=== PATIENT | male | born 1965 | race Caucasian/White ===

== ENCOUNTER 2019-08-30 11:06 | Inpatient (IN) ==
[~2019-08-30 11:06] MED LIST: LASIX IVP SCH
[2019-08-30] MEDS ORDERED: ROCEPHIN VIAL 1 GRAM 1 G in NS 100 ML IV + SPIKE MINIBAG* 100 ML IV SCH (13:45)
[2019-08-30] MEDS ORDERED: NS 1000 ML 1,000 ML IV SCH (14:00)
[2019-08-30] MEDS ORDERED: LASIX IVP SCH ×2 (14:00)
[2019-08-30] MEDS ORDERED: ASPIRIN EC 81 MG PO SCH (14:00)
[2019-08-30] MEDS ORDERED: DUONEB 0.5 MG/3 MG (3 mL) NEB ONE (14:13)
[2019-08-30 14:14] LABS: BASOPHILS # (AUTO) 0.1 X10^3/uL (0.0-0.1); BASOPHILS % (AUTO) 0.7 % (0.2-1.0); EOSINOPHILS % (AUTO) 0.4 % (0.9-2.9); HEMATOCRIT 50.9 % (42.0-54.0); HEMOGLOBIN 17.2 g/dL (13.5-18.0); LYMPHOCYTES # (AUTO) 1.6 X10^3/uL (1.3-2.9); LYMPHOCYTES % (AUTO) 16.2 % (21.0-51.0); MEAN CORPUSCULAR HEMOGLOBIN 31.9 pg (27.0-34.0); MEAN CORPUSCULAR HGB CONC 33.8 g/dL (33.0-35.0); MEAN CORPUSCULAR VOLUME 94.4 fL (80.0-100.0); MEAN PLATELET VOLUME 8.5 fL (7.4-11.0); MONOCYTES # (AUTO) 0.8 x10^3/uL (0.3-0.8); MONOCYTES % (AUTO) 8.4 % (0.0-13.0); NEUTROPHILS # (AUTO) 7.5 x10^3/uL (2.2-4.8); NEUTROPHILS % (AUTO) 74.3 % (42.0-75.0); PLATELET COUNT 269 X10^3/uL (150.0-450.0); RED BLOOD COUNT 5.39 X10^6/uL (4.7-6.0); RED CELL DISTRIBUTION WIDTH 14.7 % (11.6-16.5); WHITE BLOOD COUNT 10.1 X10^3/uL (3.6-10.0)
--- NOTE | 2019-08-30 14:24 | RAD ---
HISTORYSOB, SWELLINGSTUDYCHEST, 1 VIEWCOMPARISONNoneFINDINGSThe patient is slightly rotated. The cardiac silhouette is enlarged with pulmonary vascular congestion and bibasilar edema and/or infiltrate. Recommend clinical correlation and continued follow up as indicated for further evaluation.IMPRESSIONCardiomegaly with pulmonary vascular congestion and bibasilar edema and/or infiltrate. Correlate clinically.Electronically signed by: DOROTHY FRANCISCO (Aug 30, 2019 14:22:42)
[2019-08-30 14:28] LABS: ALANINE AMINOTRANSFERASE 25 Units/L (12-78); ALBUMIN 2.8 g/dL (3.4-5.0); ALKALINE PHOSPHATASE 82 Units/L (46-116); ASPARTATE AMINO TRANSFERASE 20 Units/L (15-37); BLOOD UREA NITROGEN 23 mg/dL (7-18); CALCIUM 8.7 mg/dL (8.5-10.1); CARBON DIOXIDE 26.5 mmol/L (21-32); CHLORIDE 102 mmol/L (98-107); COR CA(FOR HYPOALB) 9.7 mg/dL (8.5-10.1); COR NA(FOR HYPERGLY) 142 mmol/L (136-145); CREATININE 1.04 mg/dL (0.70-1.30); SODIUM 137 mmol/L (136-145); TOTAL PROTEIN 6.2 g/dL (6.4-8.2); eGFR NON BLACK RACES > 60 (>60)
[2019-08-30] MEDS: ROCEPHIN VIAL 1 GRAM 1 G in NS 100 ML IV + SPIKE MINIBAG* 100 ML IV SCH (14:40)
[2019-08-30] MEDS: NS 1000 ML 1,000 ML IV SCH (14:40)
[2019-08-30] MEDS: ZESTRIL TAB 40 MG PO SCH (14:52)
[2019-08-30 14:53] LABS: CKMB % 2.1 % (<4); TROPONIN I 0.04 ng/mL (0-1.5)
[2019-08-30 14:56] LABS: CREATINE KINASE MB 4.6 ng/mL (0-4.0)
[2019-08-30 15:48] VITALS: BMI 38.9
[2019-08-30] MEDS ORDERED: LASIX IVP ONE (15:54)
[2019-08-30] MEDS ORDERED: LOVENOX INJ 100 MG SYR SC SCH ×2 (16:00→21:00)
[2019-08-30] MEDS ORDERED: LOVENOX INJ 30 MG SYR SC SCH (16:00)
[2019-08-30] MEDS ORDERED: LOVENOX INJ 30 MG SYR SC ONE (16:02)
[2019-08-30] MEDS ORDERED: LOVENOX INJ 100 MG SYR SC ONE (16:03)
[2019-08-30] MEDS ORDERED: LASIX ONE (16:04)
[2019-08-30] MEDS ORDERED: MORPHINE SULFATE INJ 2 MG INJ ONE (16:04)
[2019-08-30] MEDS: MORPHINE SULFATE INJ 2 MG INJ IVP PRN (16:21)
[2019-08-30] MEDS: HumuLIN R SUBCUT PRN ×2 (16:34→20:25)
[2019-08-30] MEDS: XOPENEX 1.25 MG/3 ML NEBULE NEB SCH (17:23)
[2019-08-30 18:20] LABS: CKMB % 2.2 % (<4); TROPONIN I 0.04 ng/mL (0-1.5)
[2019-08-30 18:22] LABS: CREATINE KINASE MB 4.9 ng/mL (0-4.0)
[2019-08-30] MEDS: LIPITOR TAB 40 MG PO SCH (20:25)
[2019-08-30 22:23] LABS: CKMB % 2.1 % (<4); TROPONIN I 0.04 ng/mL (0-1.5)
[2019-08-30 22:42] LABS: CREATINE KINASE MB 4.1 ng/mL (0-4.0)
[2019-08-31] MEDS: XOPENEX 1.25 MG/3 ML NEBULE NEB SCH ×4 (00:20→17:04)
[2019-08-31] MEDS: MORPHINE SULFATE INJ 2 MG INJ IVP PRN (01:49)
[2019-08-31] MEDS: LASIX IVP SCH ×3 (03:32→20:01)
[2019-08-31] MEDS ORDERED: LOVENOX INJ 30 MG SYR SC SCH (04:00)
[2019-08-31 06:06] LABS: BASOPHILS # (AUTO) 0.1 X10^3/uL (0.0-0.1); BASOPHILS % (AUTO) 0.6 % (0.2-1.0); EOSINOPHILS # (AUTO) 0.1 x10^3/uL (0.0-0.2); EOSINOPHILS % (AUTO) 1.1 % (0.9-2.9); HEMOGLOBIN 16.6 g/dL (13.5-18.0); LYMPHOCYTES # (AUTO) 1.8 X10^3/uL (1.3-2.9); LYMPHOCYTES % (AUTO) 21.9 % (21.0-51.0); MEAN CORPUSCULAR HEMOGLOBIN 31.9 pg (27.0-34.0); MEAN CORPUSCULAR HGB CONC 33.9 g/dL (33.0-35.0); MEAN CORPUSCULAR VOLUME 94.3 fL (80.0-100.0); MEAN PLATELET VOLUME 8.7 fL (7.4-11.0); MONOCYTES # (AUTO) 0.8 x10^3/uL (0.3-0.8); MONOCYTES % (AUTO) 9.8 % (0.0-13.0); NEUTROPHILS # (AUTO) 5.5 x10^3/uL (2.2-4.8); NEUTROPHILS % (AUTO) 66.6 % (42.0-75.0); PLATELET COUNT 249 X10^3/uL (150.0-450.0); RED CELL DISTRIBUTION WIDTH 14.8 % (11.6-16.5); WHITE BLOOD COUNT 8.2 X10^3/uL (3.6-10.0)
[2019-08-31 06:16] LABS: HEMOGLOBIN A1C 10.1 %
[2019-08-31 06:23] LABS: ALANINE AMINOTRANSFERASE 23 Units/L (12-78); ALBUMIN 2.4 g/dL (3.4-5.0); ALKALINE PHOSPHATASE 72 Units/L (46-116); ASPARTATE AMINO TRANSFERASE 19 Units/L (15-37); BLOOD UREA NITROGEN 25 mg/dL (7-18); CALCIUM 8.2 mg/dL (8.5-10.1); CARBON DIOXIDE 30.9 mmol/L (21-32); CHLORIDE 103 mmol/L (98-107); COR CA(FOR HYPOALB) 9.5 mg/dL (8.5-10.1); COR NA(FOR HYPERGLY) 141 mmol/L (136-145); CREATININE 1.02 mg/dL (0.70-1.30); SODIUM 140 mmol/L (136-145); TOTAL PROTEIN 6.3 g/dL (6.4-8.2); eGFR NON BLACK RACES > 60 (>60)
[2019-08-31] MEDS ORDERED: POTASSIUM CHL 60 MEQ/NS 0.45% 500 ML IV PRN (08:04)
[2019-08-31] MEDS ORDERED: POTASSIUM CHLORIDE LIQ 20 MEQ UDC PO PRN (08:04)
[2019-08-31] MEDS ORDERED: MICRO K EXTEN CAP 10 MEQ PO PRN (08:04)
[2019-08-31] MEDS ORDERED: K-RIDER 10 MEQ/NS 100 ML 10 MEQ/100 ML BAG IV PRN (08:04)
[2019-08-31] MEDS ORDERED: KLOR-CON PO PRN (08:04)
[2019-08-31] MEDS ORDERED: POTASSIUM CHL 40 MEQ/NS 0.45% 500 ML IV PRN (08:04)
[2019-08-31] MEDS ORDERED: ASPIRIN EC 81 MG PO SCH (09:00)
[2019-08-31] MEDS: ZESTRIL TAB 40 MG PO SCH (09:00)
[2019-08-31] MEDS ORDERED: ZESTRIL TAB 40 MG PO SCH (09:00)
[2019-08-31] MEDS: ROCEPHIN VIAL 1 GRAM 1 G in NS 100 ML IV + SPIKE MINIBAG* 100 ML IV SCH (09:03)
[2019-08-31] MEDS: LOVENOX INJ 30 MG SYR SC SCH ×2 (09:04→20:01)
[2019-08-31] MEDS: LOVENOX INJ 100 MG SYR SC SCH ×2 (09:06→20:01)
[2019-08-31] MEDS: NS 1000 ML 1,000 ML IV SCH ×2 (10:38→21:25)
[2019-08-31] MEDS: NORVASC TAB 10 MG PO SCH (11:09)
[2019-08-31] MEDS: MAGNESIUM SULFATE 1 GRAM/100 mL PREMIX 1 GM/100 ML BAG IV PRN ×2 (11:10→13:06)
[2019-08-31] MEDS: K-DUR TAB 20 MEQ PO PRN (11:10)
[2019-08-31] MEDS: HumuLIN R SUBCUT PRN ×2 (11:42→17:09)
[2019-08-31] MEDS: ALDACTONE TAB 25 MG PO SCH (11:42)
--- NOTE | 2019-08-31 14:38 | RAD ---
HISTORYCHFSTUDYAP [id number]/27/2019FINDINGSStable cardiomegaly with bilateral pulmonary infiltrates and vascular congestion. There is no new abnormality or interval change since 1 day prior.IMPRESSIONContinued cardiomegaly with described pulmonary densities consistent with perivascular edema. An associated inflammatory process is not excluded.Electronically signed by: ALE ASHRAF (Aug 31, 2019 14:36:28)
[2019-08-31] MEDS: LIPITOR TAB 40 MG PO SCH (20:04)
[2019-08-31] MEDS: LEVEMIR SC SCH (20:05)
[2019-08-31] MEDS: SNACK - Diabetic Appropriate PO SCH (20:05)
[2019-08-31] MEDS ORDERED: LIPITOR TAB 40 MG PO SCH (21:00)
[2019-09-01] MEDS: XOPENEX 1.25 MG/3 ML NEBULE NEB SCH ×4 (00:10→17:01)
[2019-09-01] MEDS: NS 1000 ML 1,000 ML IV SCH (05:35)
[2019-09-01 06:11] LABS: BASOPHILS % (AUTO) 0.6 % (0.2-1.0); EOSINOPHILS # (AUTO) 0.1 x10^3/uL (0.0-0.2); EOSINOPHILS % (AUTO) 1.2 % (0.9-2.9); HEMATOCRIT 49.8 % (42.0-54.0); HEMOGLOBIN 16.7 g/dL (13.5-18.0); LYMPHOCYTES % (AUTO) 28.5 % (21.0-51.0); MEAN CORPUSCULAR HEMOGLOBIN 31.8 pg (27.0-34.0); MEAN CORPUSCULAR HGB CONC 33.5 g/dL (33.0-35.0); MEAN CORPUSCULAR VOLUME 94.8 fL (80.0-100.0); MEAN PLATELET VOLUME 8.5 fL (7.4-11.0); MONOCYTES # (AUTO) 0.7 x10^3/uL (0.3-0.8); MONOCYTES % (AUTO) 9.5 % (0.0-13.0); NEUTROPHILS # (AUTO) 4.3 x10^3/uL (2.2-4.8); NEUTROPHILS % (AUTO) 60.2 % (42.0-75.0); PLATELET COUNT 279 X10^3/uL (150.0-450.0); RED BLOOD COUNT 5.25 X10^6/uL (4.7-6.0); RED CELL DISTRIBUTION WIDTH 14.9 % (11.6-16.5); WHITE BLOOD COUNT 7.1 X10^3/uL (3.6-10.0)
[2019-09-01 06:25] LABS: ALANINE AMINOTRANSFERASE 22 Units/L (12-78); ALBUMIN 2.6 g/dL (3.4-5.0); ALKALINE PHOSPHATASE 77 Units/L (46-116); ASPARTATE AMINO TRANSFERASE 22 Units/L (15-37); BLOOD UREA NITROGEN 21 mg/dL (7-18); CALCIUM 8.4 mg/dL (8.5-10.1); CHLORIDE 102 mmol/L (98-107); COR CA(FOR HYPOALB) 9.5 mg/dL (8.5-10.1); COR NA(FOR HYPERGLY) 140 mmol/L (136-145); MAGNESIUM 1.8 mg/dL (1.7-2.9); SODIUM 139 mmol/L (136-145); TOTAL PROTEIN 6.9 g/dL (6.4-8.2); eGFR NON BLACK RACES > 60 (>60)
[2019-09-01] MEDS: MAGNESIUM SULFATE 1 GRAM/100 mL PREMIX 1 GM/100 ML BAG IV PRN ×2 (06:32→09:00)
[2019-09-01] MEDS: K-DUR TAB 20 MEQ PO PRN (06:32)
--- NOTE | 2019-09-01 07:25 | RAD ---
HISTORYchf, sobSTUDYCHEST, 1 [id number]/28/2019 at 4:33 a.m.FINDINGSThe heart is mildly enlarged but unchanged. The pulmonary vessels are engorged ill-defined centrally and may be slightly less prominent. There is hazy airspace opacity along the perihilar regions which is more prominent on the right and may be less prominent. There is a small right pleural effusion which is more prominent.IMPRESSIONStable cardiomegaly and mild pulmonary edema which may be slightly less prominentHazy airspace opacities scattered in both lungs which is more prominent on the right may represent atypical edema and/or pneumonia which may be slightly less prominent.Small right pleural effusion which is more apparentElectronically signed by: CHRYSTAL PRADHAN (Sep 01, 2019 07:24:08)
[2019-09-01] MEDS: LASIX IVP SCH ×5 (08:57→21:04)
[2019-09-01] MEDS: ALDACTONE TAB 25 MG PO SCH (08:58)
[2019-09-01] MEDS: ZESTRIL TAB 40 MG PO SCH (08:58)
[2019-09-01] MEDS: NORVASC TAB 10 MG PO SCH (08:58)
[2019-09-01] MEDS: LOVENOX INJ 30 MG SYR SC SCH ×2 (08:59→20:31)
[2019-09-01] MEDS: LOVENOX INJ 100 MG SYR SC SCH ×2 (08:59→20:39)
[2019-09-01] MEDS: ROCEPHIN VIAL 1 GRAM 1 G in NS 100 ML IV + SPIKE MINIBAG* 100 ML IV SCH (09:01)
[2019-09-01] MEDS: LEVEMIR SC SCH ×2 (09:05→20:38)
--- NOTE | 2019-09-01 09:19 | CT ---
HISTORYSOBSTUDYSINUS W/O CONCOMPARISONNoneTECHNIQUEMultiple axial images of the paranasal sinuses were obtained without the administration of IV contrast. Coronal and sagittal reformats were performed and reviewed. Dose reduction techniques including Automated Exposure Control (AEC) and adjustment of mA and kV were utilized.FINDINGSThe visualized intracranial orbital contents are unremarkable. There is mild mucosal thickening along the base of the frontal sinuses extending throughout the ethmoid air cells and right maxillary sinus. There is diffuse opacification of the left maxillary antrum with mucosal thickening extending into the left infundibulum which is mildly dilated and occluded with bony thinning throughout the area. No air-fluid levels are seen. No fracture is seen. The orbits are unremarkable. The nasal septum is mildly deviated to the right.IMPRESSIONMild chronic pansinusitis.Severe chronic left maxillary sinus disease and mucosal thickening seen extending into the left infundibulum which is mildly dilated and occluded throughout. Suggest ENT follow-up.Mild nasal septal deviation to the right with no acute bony abnormality.Electronically signed by: CHRYSTAL PRADHAN (Sep 01, 2019 09:18:18)
[2019-09-01] MEDS ORDERED: LASIX IVP ONE (13:27)
[2019-09-01] MEDS ORDERED: LASIX ONE (13:27)
[2019-09-01] MEDS ORDERED: LASIX IVP SCH (14:00)
[2019-09-01] MEDS: HumuLIN R SUBCUT PRN (16:55)
[2019-09-01] MEDS: LIPITOR TAB 40 MG PO SCH (20:29)
[2019-09-01] MEDS: SNACK - Diabetic Appropriate PO SCH (20:39)
[2019-09-02] MEDS: XOPENEX 1.25 MG/3 ML NEBULE NEB SCH ×4 (00:58→17:07)
[2019-09-02] MEDS: NS 1000 ML 1,000 ML IV SCH ×2 (04:27→23:14)
[2019-09-02] MEDS: LASIX IVP SCH ×3 (05:06→21:31)
--- NOTE | 2019-09-02 06:13 | PCM.PROG ---
Progress Note - Progress Note for Day of Date of Exam: 08/31/19 - Subjective Subjective: WAS ADMITTED FOR NEW ONSET CHF, SOB, AND BILATERAL LOWER EXTREMITY PITTING EDEMA. TODAY, HE IS ALERT AND ORIENTED, LYING IN BED ON MORNING ROUNDS. HE CONTINUES WITH COUGH, SHORTNESS OF BREATH, WEAKNESS, AND EDEMA THIS MORNING. HE ALSO REPORTS SINUS CONGESTION AND HEADACHE. ON EXAM INATION, HEART IS REGULAR IN RATE AND RHYTHM. BILATERAL LUNGS ARE NOTED WITH CRACKLES THROUGHOUT. ABDOMEN IS ROUND, SOFT, AND NON-TENDER WITH NORMAL BOWEL SOUNDS NOTED IN ALL QUADRANTS. LOWER EXTREMITIES ARE NOTED WITH 3+ PITTING EDEMA. HIS VITALS THIS MORNING ARE: 97.4-98-28-99%BIPAP-147/92. LABS WERE OBTAINED. ABNORMAL LAB VALUES INCLUDE THE FOLLOWING: BUN 25, GLUCOSE 139, CALCIUM 8.2, MAGNESIUM 1.5, TOTAL BILI 1.10, BNP 842, TOTAL PROTEIN 6.3, ALBUMIN 2.4. SPUTUM CULTURE IS PENDING. A CHEST XRAY WAS OBTAINED AND REVEALED: Continued cardiomegaly with described pulmonary densities consistent with perivascular edema. An associated inflammatory process is not excluded. AN ECHO WAS OBTAINED ON ADMISSION AND LEFT ATRIAL ENLARGEMENT WITH AN ABNORMAL EJECTION FRACTION OF 21% AND MODERATE PULMONARY HPERTENSION. HE IS CURRENTLY RECEIVING NS AT 50 ML/HR, THE POTASSIUM AND MAGNESIUM PROTOCOLS, MORPHINE 2MG IV Q4H PRN, LISINOPRIL 40MG PO DAILY, HUMULIN R SLDING SCALE, LASIX 40MG IV Q 12H, AND RO CEPHIN 1G IV DAILY. WE WILL CONTINUE WITH CURRENT PLAN OF CARE TODAY AND OBTAIN A SINUS CT. OTHERWISE, WE WILL FOLLOW UP WITH AM LABS AND CHEST XRAY CONTINUE TO MONITOR. - Past Medical Family Social History Past Med/Fam/Surg Hx: No changes since H&P Allergies: Allergies No Known Drug Allergies Allergy (Verified 08/30/19 14:03) - Review of Systems ROS: No change since H&P - Vital Signs and I&O's Vital Signs: Temperature 97.5 F Pulse Rate [Left Radial] 99 Pulse Rate 106 Respiratory Rate 20 Blood Pressure [Left Arm] 127/90 O2 Sat by Pulse Oximetry 98 Intake and Output: Intake & Output 08/30/19 08/31/19 09/01/19 09/02/19 11:59 11:59 11:59 11:59 Intake Total 880 / 880 1830 / 1830 2250 / 2250 Output Total 1450 / 1450 3650 / 3650 3975 / 3975 Balance -570 / -570 -1820 / -1820 -1725 / -1725 - Physical Exam Oriented: Normal Eyes: Normal Ear: Normal Nose: Normal Throat: Normal Respiratory: OTHER (crackles ) Cardiovascular: Edema (3+ BLE PITTING EDEMA ) : Normal Auscultation: Bowel Sounds: Normal Palpation: Normal Tenderness: Normal Skin: Normal Musculoskeletal: Normal Psychiatric: Normal Mood Description: Calm Affect: Normal Speech Pattern: Clear, Appropriate - Laboratory and Diagnostics Result Diagrams: 09/02/19 05:37 09/02/19 05:37 Labs: 08/30/19 17:25 Sputum - Expectorated Sputum Sputum Culture - Preliminary 08/30/19 17:25 Sputum - Expectorated Sputum - Final Laboratory WBC 7.1 X10^3/uL (3.6-10.0) 09/01/19 05:35 RBC 5.25 X10^6/uL (4.7-6.0) 09/01/19 05:35 Hgb 16.7 g/dL (13.5-18.0) 09/01/19 05:35 Hct 49.8 % (42.0-54.0) 09/01/19 05:35 MCV 94.8 fL (80.0-100.0) 09/01/19 05:35 MCH 31.8 pg (27.0-34.0) 09/01/19 05:35 MCHC 33.5 g/dL (33.0-35.0) 09/01/19 05:35 RDW 14.9 % (11.6-16.5) 09/01/19 05:35 Plt Count 279 X10^3/uL (150.0-450.0) 09/01/19 05:35 MPV 8.5 fL (7.4-11.0) 09/01/19 05:35 Neut % (Auto) 60.2 % (42.0-75.0) 09/01/19 05:35 Lymph % (Auto) 28.5 % (21.0-51.0) 09/01/19 05:35 [place] % (Auto) 9.5 % (0.0-13.0) 09/01/19 05:35 Eos % (Auto) 1.2 % (0.9-2.9) 09/01/19 05:35 Baso % (Auto) 0.6 % (0.2-1.0) 09/01/19 05:35 Neut # (Auto) 4.3 x10^3/uL (2.2-4.8) 09/01/19 05:35 Lymph # (Auto) 2.0 X10^3/uL (1.3-2.9) 09/01/19 05:35 [place] # (Auto) 0.7 x10^3/uL (0.3-0.8) 09/01/19 05:35 Eos # (Auto) 0.1 x10^3/uL (0.0-0.2) 09/01/19 05:35 Baso # (Auto) 0.0 X10^3/uL (0.0-0.1) 09/01/19 05:35 Absolute Nucleated RBC 0.0 /100WBC 09/01/19 05:35 PT 15.1 SECONDS (11.8-14.3) 08/30/19 13:59 INR Target Range - 08/30/19 13:59 INR 1.24 (0.8-1.3) 08/30/19 13:59 Sodium 139 mmol/L (136-145) 09/01/19 05:35 Corrected Sodium 140 mmol/L (136-145) 09/01/19 05:35 Potassium 3.5 mmol/L (3.5-5.1) 09/01/19 05:35 Chloride 102 mmol/L (98-107) 09/01/19 05:35 Carbon Dioxide 31.0 mmol/L (21-32) 09/01/19 05:35 BUN 21 mg/dL (7-18) H 09/01/19 05:35 Creatinine 1.10 mg/dL (0.70-1.30) 09/01/19 05:35 Est GFR (MDRD) Af Amer > 60 (>60) 09/01/19 05:35 Est GFR (MDRD) Non-Af > 60 (>60) 09/01/19 05:35 Glucose 124 mg/dL (65-99) H 09/01/19 05:35 POC Glucose (mg/dL) 148 mg/dL (65-99) H 09/02/19 05:31 Hemoglobin A1c 10.1 % 08/31/19 05:30 Calcium 8.4 mg/dL (8.5-10.1) L 09/01/19 05:35 Corrected Calcium 9.5 mg/dL (8.5-10.1) 09/01/19 05:35 Magnesium 1.8 mg/dL (1.7-2.9) 09/01/19 05:35 Total Bilirubin 1.00 mg/dL (0.2-1.0) 09/01/19 05:35 AST 22 Units/L (15-37) 09/01/19 05:35 ALT 22 Units/L (12-78) 09/01/19 05:35 Alkaline Phosphatase 77 Units/L (46-116) 09/01/19 05:35 Creatine Kinase 197 Units/L (39-308) 08/30/19 21:38 CK-MB (CK-2) 4.1 ng/mL (0-4.0) H 08/30/19 21:38 CK/CKMB % Calc 2.1 % (<4) 08/30/19 21:38 Troponin I 0.04 ng/mL (0-1.5) 08/30/19 21:38 B-Natriuretic Peptide 800 pg/mL (0-79) H* 09/01/19 05:35 Total Protein 6.9 g/dL (6.4-8.2) 09/01/19 05:35 Albumin 2.6 g/dL (3.4-5.0) L 09/01/19 05:35 Globulin 4.3 g/dL (2.5-4.5) 09/01/19 05:35 Albumin/Globulin Ratio 0.6 Ratio (1.1-2.1) L 09/01/19 05:35 - Plan (1) New onset of congestive heart failure Status: Acute Plan: IV LASIX, LISINOPRIL, SPIRONOLACTONE 25MG PO DAILY, CONTINUE HOME MEDS, CONTINUE TO MONITOR (2) Shortness of breath Status: Acute Plan: RESPIRATORY TX, CONTINUE TO MONITOR (3) Lower extremity edema Status: Acute (4) Diabetes Status: Acute Qualifiers: Diabetes mellitus type: type 2 Diabetes mellitus 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
[2019-09-02 06:24] LABS: BASOPHILS % (AUTO) 0.6 % (0.2-1.0); EOSINOPHILS # (AUTO) 0.1 x10^3/uL (0.0-0.2); EOSINOPHILS % (AUTO) 1.3 % (0.9-2.9); HEMATOCRIT 49.9 % (42.0-54.0); HEMOGLOBIN 16.8 g/dL (13.5-18.0); LYMPHOCYTES # (AUTO) 1.8 X10^3/uL (1.3-2.9); MEAN CORPUSCULAR HEMOGLOBIN 31.6 pg (27.0-34.0); MEAN CORPUSCULAR HGB CONC 33.7 g/dL (33.0-35.0); MEAN CORPUSCULAR VOLUME 93.6 fL (80.0-100.0); MEAN PLATELET VOLUME 8.2 fL (7.4-11.0); MONOCYTES # (AUTO) 0.7 x10^3/uL (0.3-0.8); MONOCYTES % (AUTO) 10.9 % (0.0-13.0); NEUTROPHILS # (AUTO) 3.8 x10^3/uL (2.2-4.8); NEUTROPHILS % (AUTO) 59.2 % (42.0-75.0); PLATELET COUNT 296 X10^3/uL (150.0-450.0); RED BLOOD COUNT 5.33 X10^6/uL (4.7-6.0); RED CELL DISTRIBUTION WIDTH 14.5 % (11.6-16.5); WHITE BLOOD COUNT 6.4 X10^3/uL (3.6-10.0)
[2019-09-02 06:30] LABS: ALANINE AMINOTRANSFERASE 22 Units/L (12-78); ALBUMIN 2.8 g/dL (3.4-5.0); ALKALINE PHOSPHATASE 81 Units/L (46-116); ASPARTATE AMINO TRANSFERASE 22 Units/L (15-37); BLOOD UREA NITROGEN 22 mg/dL (7-18); CALCIUM 8.6 mg/dL (8.5-10.1); CARBON DIOXIDE 35.4 mmol/L (21-32); CHLORIDE 100 mmol/L (98-107); COR CA(FOR HYPOALB) 9.6 mg/dL (8.5-10.1); COR NA(FOR HYPERGLY) 142 mmol/L (136-145); CREATININE 1.17 mg/dL (0.70-1.30); MAGNESIUM 1.9 mg/dL (1.7-2.9); SODIUM 141 mmol/L (136-145); TOTAL PROTEIN 7.3 g/dL (6.4-8.2); eGFR NON BLACK RACES > 60 (>60)
--- NOTE | 2019-09-02 06:35 | RAD ---
HISTORYShortness of breathSTUDYCHEST, 1 [id number]/29/2019FINDINGSThe heart is enlarged. No definite congestive heart failure is noted. Right-sided perihilar infiltrate is improved. Left-sided perihilar infiltrate is unchanged. No pleural effusions are identified. The bony thorax is unremarkable.IMPRESSIONCardiomegaly without congestive heart failureImproved right perihilar infiltrateNo change left perihilar infiltrateElectronically signed by: ROBSON RENAE (Sep 02, 2019 06:34:56)
--- NOTE | 2019-09-02 09:17 | PCM.PROG ---
Progress Note - Progress Note for Day of Date of Exam: 09/01/19 - Subjective Subjective: WAS ADMITTED FOR NEW ONSET CHF, SOB, AND BILATERAL LOWER EXTREMITY PITTING EDEMA. TODAY, HE IS ALERT AND ORIENTED, LYING IN BED ON MORNING ROUNDS. HE CONTINUES WITH COUGH, SHORTNESS OF BREATH, WEAKNESS, AND EDEMA THIS MORNING. HE ALSO CONTINUES WITH HEADACHE. ON EXAMINATION, HE IS TACHYCARDIC, BUT REGULAR IN RHYTHM. BILATERAL LUNGS ARE NOTED WITH CRACKLES THROUGHOUT. ABDOMEN IS ROUND, SOFT, AND NON-TENDER WITH NORMAL BOWEL SOUNDS NOTED IN ALL QUADRANTS. LOWER EXTREMITIES ARE NOTED WITH 2+ PITTING EDEMA. HIS VITALS THIS MORNING ARE: 98.8-118-28-96%BIPAP-125/86. LABS WERE OBTAINED. ABNORMAL LAB VALUES INCLUDE THE FOLLOWING: BUN 21, GLUCOSE 124, CALCIUM 8.4, BNP 800, ALBUMIN 2.6. SPUTUM CULTURE IS PENDING. A CHEST XRAY WAS OBTAINED AND REVEALED: Stable cardiomegaly and mild pulmonary edema which may be slightly less prominent. Hazy airspace opacities scattered in both lungs which is more prominent on the right may represent atypical edema and/or pneumonia which may be slightly less prominent. Small right pleural effusion which is more apparent. A SINUS CT WAS OBTAINED YESTERDAY AND REVEALED: Mild chronic pansinusitis. Severe chronic left maxillary sinus disease and mucosal thickening seen extending into the left infundibulum which is mildly dilated and occluded t hroughout. Suggest ENT follow-up. Mild nasal septal deviation to the right with no acute bony abnormality. HE IS CURRENTLY RECEIVING NS AT 50 ML/HR, THE POTASSIUM AND MAGNESIUM PROTOCOLS, MORPHINE 2MG IV Q4H PRN, LISINOPRIL 40MG PO DAILY, HUMULIN R SLDING SCALE, ALDACTONE, LASIX IV, AND ROCEPHIN 1G IV DAILY. WE WILL CONTINUE WITH CURRENT PLAN OF CARE TODAY. OTHERWISE, WE WILL FOLLOW UP WITH AM LABS AND CHEST XRAY CONTINUE TO MONITOR. - Past Medical Family Social History Past Med/Fam/Surg Hx: No changes since H&P Allergies: Allergies No Known Drug Allergies Allergy (Verified 08/30/19 14:03) - Review of Systems ROS: No change since H&P - Vital Signs and I&O's Vital Signs: Temperature 97.8 F Pulse Rate [Left Radial] 100 Pulse Rate 106 Respiratory Rate 26 Blood Pressure [Left Arm] 128/93 O2 Sat by Pulse Oximetry 96 Intake and Output: Intake & Output 08/30/19 08/31/19 09/01/19 09/02/19 11:59 11:59 11:59 11:59 Intake Total 880 / 880 1830 / 1830 2250 / 2250 Output Total 1450 / 1450 3650 / 3650 5200 / 5200 Balance -570 / -570 -1820 / -1820 -2950 / -2950 - Physical Exam Oriented: Normal Eyes: Normal Ear: Normal Nose: Normal Throat: Normal Respiratory: OTHER (crackles ) Cardiovascular: Edema (2+ BLE PITTING EDEMA ) : Normal Auscultation: Bowel Sounds: Normal Palpation: Normal Tenderness: Normal Skin: Normal Musculoskeletal: Normal Psychiatric: Normal Mood Description: Calm Affect: Normal Speech Pattern: Clear, Appropriate - Laboratory and Diagnostics Result Diagrams: 09/02/19 05:37 09/02/19 05:37 Labs: 08/30/19 17:25 Sputum - Expectorated Sputum Sputum Culture - Final 08/30/19 17:25 Sputum - Expectorated Sputum - Final Laboratory WBC 6.4 X10^3/uL (3.6-10.0) 09/02/19 05:37 RBC 5.33 X10^6/uL (4.7-6.0) 09/02/19 05:37 Hgb 16.8 g/dL (13.5-18.0) 09/02/19 05:37 Hct 49.9 % (42.0-54.0) 09/02/19 05:37 MCV 93.6 fL (80.0-100.0) 09/02/19 05:37 MCH 31.6 pg (27.0-34.0) 09/02/19 05:37 MCHC 33.7 g/dL (33.0-35.0) 09/02/19 05:37 RDW 14.5 % (11.6-16.5) 09/02/19 05:37 Plt Count 296 X10^3/uL (150.0-450.0) 09/02/19 05:37 MPV 8.2 fL (7.4-11.0) 09/02/19 05:37 Neut % (Auto) 59.2 % (42.0-75.0) 09/02/19 05:37 Lymph % (Auto) 28.0 % (21.0-51.0) 09/02/19 05:37 [place] % (Auto) 10.9 % (0.0-13.0) 09/02/19 05:37 Eos % (Auto) 1.3 % (0.9-2.9) 09/02/19 05:37 Baso % (Auto) 0.6 % (0.2-1.0) 09/02/19 05:37 Neut # (Auto) 3.8 x10^3/uL (2.2-4.8) 09/02/19 05:37 Lymph # (Auto) 1.8 X10^3/uL (1.3-2.9) 09/02/19 05:37 [place] # (Auto) 0.7 x10^3/uL (0.3-0.8) 09/02/19 05:37 Eos # (Auto) 0.1 x10^3/uL (0.0-0.2) 09/02/19 05:37 Baso # (Auto) 0.0 X10^3/uL (0.0-0.1) 09/02/19 05:37 Absolute Nucleated RBC 0.1 /100WBC 09/02/19 05:37 PT 15.1 SECONDS (11.8-14.3) 08/30/19 13:59 INR Target Range - 08/30/19 13:59 INR 1.24 (0.8-1.3) 08/30/19 13:59 Sodium 141 mmol/L (136-145) 09/02/19 05:37 Corrected Sodium 142 mmol/L (136-145) 09/02/19 05:37 Potassium 3.8 mmol/L (3.5-5.1) 09/02/19 05:37 Chloride 100 mmol/L (98-107) 09/02/19 05:37 Carbon Dioxide 35.4 mmol/L (21-32) H 09/02/19 05:37 BUN 22 mg/dL (7-18) H 09/02/19 05:37 Creatinine 1.17 mg/dL (0.70-1.30) 09/02/19 05:37 Est GFR (MDRD) Af Amer > 60 (>60) 09/02/19 05:37 Est GFR (MDRD) Non-Af > 60 (>60) 09/02/19 05:37 Glucose 138 mg/dL (65-99) H 09/02/19 05:37 POC Glucose (mg/dL) 148 mg/dL (65-99) H 09/02/19 05:31 Hemoglobin A1c 10.1 % 08/31/19 05:30 Calcium 8.6 mg/dL (8.5-10.1) 09/02/19 05:37 Corrected Calcium 9.6 mg/dL (8.5-10.1) 09/02/19 05:37 Magnesium 1.9 mg/dL (1.7-2.9) 09/02/19 05:37 Total Bilirubin 1.10 mg/dL (0.2-1.0) H 09/02/19 05:37 AST 22 Units/L (15-37) 09/02/19 05:37 ALT 22 Units/L (12-78) 09/02/19 05:37 Alkaline Phosphatase 81 Units/L (46-116) 09/02/19 05:37 Creatine Kinase 197 Units/L (39-308) 08/30/19 21:38 CK-MB (CK-2) 4.1 ng/mL (0-4.0) H 08/30/19 21:38 CK/CKMB % Calc 2.1 % (<4) 08/30/19 21:38 Troponin I 0.04 ng/mL (0-1.5) 08/30/19 21:38 B-Natriuretic Peptide 916 pg/mL (0-79) H* 09/02/19 05:37 Total Protein 7.3 g/dL (6.4-8.2) 09/02/19 05:37 Albumin 2.8 g/dL (3.4-5.0) L 09/02/19 05:37 Globulin 4.5 g/dL (2.5-4.5) 09/02/19 05:37 Albumin/Globulin Ratio 0.6 Ratio (1.1-2.1) L 09/02/19 05:37 - Plan (1) New onset of congestive heart failure Status: Acute Plan: IV LASIX, LISINOPRIL, SPIRONOLACTONE 25MG PO DAILY, CONTINUE HOME MEDS, CONTINUE TO MONITOR (2) Shortness of breath Status: Acute Plan: RESPIRATORY TX, CONTINUE TO MONITOR (3) Lower extremity edema Status: Acute (4) Diabetes Status: Acute Qualifiers: Diabetes mellitus type: type 2 Diabetes mellitus 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
[2019-09-02] MEDS: ROCEPHIN VIAL 1 GRAM 1 G in NS 100 ML IV + SPIKE MINIBAG* 100 ML IV SCH (09:43)
[2019-09-02] MEDS: LOVENOX INJ 100 MG SYR SC SCH (09:44)
[2019-09-02] MEDS: LOVENOX INJ 30 MG SYR SC SCH (09:44)
[2019-09-02] MEDS: LEVEMIR SC SCH ×2 (09:47→21:00)
[2019-09-02] MEDS: ALDACTONE TAB 25 MG PO SCH (09:47)
[2019-09-02] MEDS: ZESTRIL TAB 40 MG PO SCH (09:47)
[2019-09-02] MEDS: HumuLIN R SUBCUT PRN ×2 (16:47→21:35)
[2019-09-02] MEDS ORDERED: LASIX IVP SCH ×2 (21:00)
[2019-09-02] MEDS: SNACK - Diabetic Appropriate PO SCH (21:15)
[2019-09-02] MEDS: LIPITOR TAB 40 MG PO SCH (21:32)
[2019-09-02] MEDS: LOVENOX INJ 120 MG SYR SC SCH (21:35)
[2019-09-03] MEDS: XOPENEX 1.25 MG/3 ML NEBULE NEB SCH ×2 (00:50→05:23)
[2019-09-03 05:40] LABS: BASOPHILS % (AUTO) 0.7 % (0.2-1.0); EOSINOPHILS # (AUTO) 0.1 x10^3/uL (0.0-0.2); EOSINOPHILS % (AUTO) 1.3 % (0.9-2.9); HEMATOCRIT 47.1 % (42.0-54.0); HEMOGLOBIN 15.9 g/dL (13.5-18.0); LYMPHOCYTES # (AUTO) 1.7 X10^3/uL (1.3-2.9); LYMPHOCYTES % (AUTO) 27.4 % (21.0-51.0); MEAN CORPUSCULAR HEMOGLOBIN 31.6 pg (27.0-34.0); MEAN CORPUSCULAR HGB CONC 33.7 g/dL (33.0-35.0); MEAN CORPUSCULAR VOLUME 93.8 fL (80.0-100.0); MEAN PLATELET VOLUME 8.5 fL (7.4-11.0); MONOCYTES # (AUTO) 0.7 x10^3/uL (0.3-0.8); MONOCYTES % (AUTO) 10.7 % (0.0-13.0); NEUTROPHILS # (AUTO) 3.8 x10^3/uL (2.2-4.8); NEUTROPHILS % (AUTO) 59.9 % (42.0-75.0); PLATELET COUNT 273 X10^3/uL (150.0-450.0); RED BLOOD COUNT 5.03 X10^6/uL (4.7-6.0); RED CELL DISTRIBUTION WIDTH 14.3 % (11.6-16.5); WHITE BLOOD COUNT 6.3 X10^3/uL (3.6-10.0)
[2019-09-03 06:05] LABS: ALANINE AMINOTRANSFERASE 20 Units/L (12-78); ALBUMIN 2.5 g/dL (3.4-5.0); ALKALINE PHOSPHATASE 76 Units/L (46-116); ASPARTATE AMINO TRANSFERASE 27 Units/L (15-37); BLOOD UREA NITROGEN 19 mg/dL (7-18); CALCIUM 8.4 mg/dL (8.5-10.1); CARBON DIOXIDE 34.5 mmol/L (21-32); CHLORIDE 102 mmol/L (98-107); COR CA(FOR HYPOALB) 9.6 mg/dL (8.5-10.1); CREATININE 1.02 mg/dL (0.70-1.30); SODIUM 141 mmol/L (136-145); TOTAL PROTEIN 6.5 g/dL (6.4-8.2); eGFR NON BLACK RACES > 60 (>60)
--- NOTE | 2019-09-03 06:27 | RAD ---
HISTORYShortness of breathSTUDYCHEST, 1 [id number]/30/2019FINDINGSThe heart is enlarged. No definite congestive heart failure is identified. The aorta is calcified. Right perihilar infiltrate is unchanged. Left-sided perihilar infiltrate also unchanged. No pleural effusions are identified. Bony thorax is unremarkable.IMPRESSIONNo change bilateral perihilar infiltratesMild cardiomegaly without congestive heart failureElectronically signed by: ROBSON RENAE (Sep 03, 2019 06:26:21)
[2019-09-03] MEDS: LOVENOX INJ 120 MG SYR SC SCH (08:48)
--- NOTE | 2019-09-03 08:48 | PCM.PROG ---
Progress Note - Progress Note for Day of Date of Exam: 09/02/19 - Subjective Subjective: WAS ADMITTED FOR NEW ONSET CHF, SOB, AND BILATERAL LOWER EXTREMITY PITTING EDEMA. TODAY, HE IS ALERT AND ORIENTED, SITTING ON THE SIDE OF THE BED ON MORNING ROUNDS. HE CONTINUES WITH COUGH, SHORTNESS OF BREATH, WEAKNESS, AND EDEMA THIS MORNING, BUT REPORTS SLIGHT IMPROVEMENT IN SYMPTOMS. ON EXAMINATION, HEART IS REGULAR IN RATE AND RHYTHM. BILATERAL LUNGS ARE NOTED WITH CRACKLES THROUGHOUT. ABDOMEN IS ROUND, SOFT, AND NON-TENDER WITH NORMAL BOWEL SOUNDS NOTED IN ALL QUADRANTS. LOWER EXTREMITIES ARE NOTED WITH 2+ PITTING EDEMA. HIS VITALS THIS MORNING ARE: 97.8-100-26-96%-128/93. LABS WERE OBTAINED. ABNORMAL LAB VALUES INCLUDE THE FOLLOWING: CARBON DIOXIDE 35.4, BUN 22, GLUCOSE 138, TOTAL BILI 1.10, BNP 916, ALBUMIN 2.8. SPUTUM CULTURE IS PENDING. A CHEST XRAY WAS OBTAINED AND REVEALED: Cardiomegaly without congestive heart failure. Improved right perihilar infiltrate. No change left perihilar infiltrate. HE IS CURRENTLY RECEIVING NS AT 50 ML/HR, THE POTASSIUM AND MAGNESIUM PROTOCOLS, MORPHINE 2MG IV Q4H PRN, LISINOPRIL 40MG PO DAILY, HUMULIN R SLDING SCALE, ALDACTONE, LASIX IV, AND ROCEPHIN 1G IV DAILY. WE WILL SET HIM UP FOR HOME CPAP AND WILL CHANGE LASIX TO 60MG IV Q12H. OTHERWISE, WE WILL CONTINUE WITH CURRENT PLAN OF CARE TODAY. WE WILL FOLLOW UP WITH AM LABS AND CHEST XRAY CONTINUE TO MONITOR. - Past Medical Family Social History Past Med/Fam/Surg Hx: No changes since H&P Allergies: Allergies No Known Drug Allergies Allergy (Verified 08/30/19 14:03) - Review of Systems ROS: No change since H&P - Vital Signs and I&O's Vital Signs: Temperature 97.7 F Pulse Rate [Left Radial] 93 Pulse Rate 101 Respiratory Rate 20 Blood Pressure [Left Arm] 130/92 O2 Sat by Pulse Oximetry 98 Intake and Output: Intake & Output 08/31/19 09/01/19 09/02/19 09/03/19 11:59 11:59 11:59 11:59 Intake Total 880 / 880 1830 / 1830 2250 / 2250 1460 / 1460 Output Total 1450 / 1450 3650 / 3650 5200 / 5200 4950 / 4950 Balance -570 / -570 -1820 / -1820 -2950 / -2950 -3490 / -3490 - Physical Exam Oriented: Normal Eyes: Normal Ear: Normal Nose: Normal Throat: Normal Respiratory: OTHER (crackles ) Cardiovascular: Edema (2+ BLE PITTING EDEMA ) : Normal Auscultation: Bowel Sounds: Normal Palpation: Normal Tenderness: Normal Skin: Normal Musculoskeletal: Normal Psychiatric: Normal Mood Description: Calm Affect: Normal Speech Pattern: Clear, Appropriate - Laboratory and Diagnostics Result Diagrams: 09/03/19 05:15 09/03/19 05:15 Labs: 08/30/19 17:25 Sputum - Expectorated Sputum Sputum Culture - Final 08/30/19 17:25 Sputum - Expectorated Sputum - Final Laboratory WBC 6.3 X10^3/uL (3.6-10.0) 09/03/19 05:15 RBC 5.03 X10^6/uL (4.7-6.0) 09/03/19 05:15 Hgb 15.9 g/dL (13.5-18.0) 09/03/19 05:15 Hct 47.1 % (42.0-54.0) 09/03/19 05:15 MCV 93.8 fL (80.0-100.0) 09/03/19 05:15 MCH 31.6 pg (27.0-34.0) 09/03/19 05:15 MCHC 33.7 g/dL (33.0-35.0) 09/03/19 05:15 RDW 14.3 % (11.6-16.5) 09/03/19 05:15 Plt Count 273 X10^3/uL (150.0-450.0) 09/03/19 05:15 MPV 8.5 fL (7.4-11.0) 09/03/19 05:15 Neut % (Auto) 59.9 % (42.0-75.0) 09/03/19 05:15 Lymph % (Auto) 27.4 % (21.0-51.0) 09/03/19 05:15 [place] % (Auto) 10.7 % (0.0-13.0) 09/03/19 05:15 Eos % (Auto) 1.3 % (0.9-2.9) 09/03/19 05:15 Baso % (Auto) 0.7 % (0.2-1.0) 09/03/19 05:15 Neut # (Auto) 3.8 x10^3/uL (2.2-4.8) 09/03/19 05:15 Lymph # (Auto) 1.7 X10^3/uL (1.3-2.9) 09/03/19 05:15 [place] # (Auto) 0.7 x10^3/uL (0.3-0.8) 09/03/19 05:15 Eos # (Auto) 0.1 x10^3/uL (0.0-0.2) 09/03/19 05:15 Baso # (Auto) 0.0 X10^3/uL (0.0-0.1) 09/03/19 05:15 Absolute Nucleated RBC 0.2 /100WBC 09/03/19 05:15 PT 15.1 SECONDS (11.8-14.3) 08/30/19 13:59 INR Target Range - 08/30/19 13:59 INR 1.24 (0.8-1.3) 08/30/19 13:59 Sodium 141 mmol/L (136-145) 09/03/19 05:15 Corrected Sodium TNP 09/03/19 05:15 Potassium 3.7 mmol/L (3.5-5.1) 09/03/19 05:15 Chloride 102 mmol/L (98-107) 09/03/19 05:15 Carbon Dioxide 34.5 mmol/L (21-32) H 09/03/19 05:15 BUN 19 mg/dL (7-18) H 09/03/19 05:15 Creatinine 1.02 mg/dL (0.70-1.30) 09/03/19 05:15 Est GFR (MDRD) Af Amer > 60 (>60) 09/03/19 05:15 Est GFR (MDRD) Non-Af > 60 (>60) 09/03/19 05:15 Glucose 104 mg/dL (65-99) H 09/03/19 05:15 POC Glucose (mg/dL) 109 mg/dL (65-99) H 09/03/19 05:38 Hemoglobin A1c 10.1 % 08/31/19 05:30 Calcium 8.4 mg/dL (8.5-10.1) L 09/03/19 05:15 Corrected Calcium 9.6 mg/dL (8.5-10.1) 09/03/19 05:15 Magnesium 1.9 mg/dL (1.7-2.9) 09/02/19 05:37 Total Bilirubin 0.80 mg/dL (0.2-1.0) 09/03/19 05:15 AST 27 Units/L (15-37) 09/03/19 05:15 ALT 20 Units/L (12-78) 09/03/19 05:15 Alkaline Phosphatase 76 Units/L (46-116) 09/03/19 05:15 Creatine Kinase 197 Units/L (39-308) 08/30/19 21:38 CK-MB (CK-2) 4.1 ng/mL (0-4.0) H 08/30/19 21:38 CK/CKMB % Calc 2.1 % (<4) 08/30/19 21:38 Troponin I 0.04 ng/mL (0-1.5) 08/30/19 21:38 B-Natriuretic Peptide 1170 pg/mL (0-79) H* 09/03/19 05:15 Total Protein 6.5 g/dL (6.4-8.2) 09/03/19 05:15 Albumin 2.5 g/dL (3.4-5.0) L 09/03/19 05:15 Globulin 4.0 g/dL (2.5-4.5) 09/03/19 05:15 Albumin/Globulin Ratio 0.6 Ratio (1.1-2.1) L 09/03/19 05:15 - Plan (1) New onset of congestive heart failure Status: Acute Plan: IV LASIX, LISINOPRIL, SPIRONOLACTONE 25MG PO DAILY, CONTINUE HOME MEDS, CONTINUE TO MONITOR (2) Shortness of breath Status: Acute Plan: RESPIRATORY TX, CONTINUE TO MONITOR (3) Lower extremity edema Status: Acute (4) Diabetes Status: Acute Qualifiers: Diabetes mellitus type: type 2 Diabetes mellitus entry level account manager insulin use: unspecified entry level account manager insulin use status Diabetes mellitus complication status: without complication Qualified Code(s): E11.9 - Type 2 diabetes mellitus without complications Plan: HUMULIN R SLIDING SCALE, LEVEMIR, CONTINUE TO MONITOR
[2019-09-03] MEDS: LASIX IVP SCH (08:49)
[2019-09-03] MEDS: LEVEMIR SC SCH (08:51)
[2019-09-03] MEDS: ZESTRIL TAB 40 MG PO SCH (08:53)
[2019-09-03] MEDS: ALDACTONE TAB 25 MG PO SCH (08:53)
[2019-09-03] MEDS: ROCEPHIN VIAL 1 GRAM 1 G in NS 100 ML IV + SPIKE MINIBAG* 100 ML IV SCH (08:54)
[2019-09-03 08:59] VITALS: BP 143/100
--- NOTE | 2019-09-09 11:50 | DR.UPDATE ---
H&P Update History and Physical Update: History and Physical reviewed and patient examined. Changes noted: Yes with the following: WAS SEEN IN THE OFFICE TODAY DUE TO COMPLAINTS OF SHORTENSS OF BREATH, COUGH, AND LOWER EXTREMITY SWELLING. HE REPORTS BEING TREATED FOR PNEUMONIA WITH LEVAQUIN AND BREATHING TREATMENTS, HOWEVER, DENIES IMPROVEMENT IN SYMPTOMS. HE WAS ADMITTED FOR FURTHER EVALUATION AND TREATMENT OF NEW ONSET CHF, SOB, BILATERAL LOWER EXTREMITY EDEMA, FAILED OUTPATIENT TX. ON ADMISSION, WE WILL OBTAIN LABS, CHEST XRAY, ECHO, CARDIAC ENZYMES, AND EKG. WE WILL START LASIX 20MG IV BID, ROCEPHIN 1G IV DAILY, HUMULIN R SLIDING SCALE, ASA 81MG PO DAILY, AND ATORVASTATIN 40MG PO HS. OTHERWISE, WE WILL FOLLOW UP WITH AM LABS AND CONTINUE TO MONITOR. Prescription drug monitoring program results: PDMP was not reviewed H&P Reviewed: Yes Patient was examined?: Yes
== END 2019-09-03 12:35 | disposition home or self-care (01) | DRG 293 ==
LOC: MED/SURG → OBSVTOIN 13:12
PROVIDERS: ADMIT Internal Medicine; ATTEND Internal Medicine
DX: E11.65 Type 2 diabetes mellitus with hyperglycemia; I10 Essential (primary) hypertension; J32.4 Chronic pansinusitis; R00.0 Tachycardia, unspecified; I50.9 Heart failure, unspecified; R06.02 Shortness of breath; I27.20 Pulmonary hypertension, unspecified; R51 Headache; R60.0 Localized edema
CPT/HCPCS: 36415; 70486; 71010; 71045; 80053; 82550; 82553; 83036; 83735; 83880; 84484; 85025; 85610; 87070; 87205; 93005; 93306; 94640; 94660; 94760; A4222; A4618; A7030; J0696; J1650; J1815; J1940; J2270; J3475; J7030; J7050; J7620

== ENCOUNTER 2019-10-12 11:25 | Inpatient (IN) ==
[2019-10-12 11:36] VITALS: BMI 33.9
[2019-10-12] MEDS ORDERED: XOPENEX 1.25 MG/3 ML NEBULE NEB ONE ×2 (11:46→11:50)
[2019-10-12] MEDS ORDERED: LASIX IVP ONE ×2 (11:46→11:55)
--- NOTE | 2019-10-12 12:01 | DR.SOBA ---
HPI Time Seen Time Seen by Provider: 10/12/19 11:44 Primary Care Physician Primary Care Physician: MADDIE Complaints Chief Complaint Doctors Comments: Patient is complaining of SOB, cold, cough, wheezing for the past hour. States he just got hot with chills and SOB about an hour ago and it is getting progressively worst. States he has c-pap at home but do not have home oxygen. States he was suppose to go to [facility] today for a left vest because he has CHF and his recent ejection fraction was 20. He denies chest pain but states his legs and feet are swelling but not as bad as usual. He has a cough with wheezing. He is a patient of Dr. Ceja. He denies tobacco or alcohol usage. States he is taking a lot of medicines for CHF. He has been running a low grade temp. Chief Complaint:: PT. STATES THIS MORNING HE WOKE UP C/O DIZZINESS, SHORTNESS OF BREATH AND FEVER. Reviewed Nurses Notes Reviewed: Yes Source History Provided: Patient and Family Member Mode of Arrival Mode of Arrival: Ambulatory Timing Onset of Chief Complaint: 10/12/19 Duration Duration: Hours (one hour) Context Onset:: At Rest PE Risk Factors:: None History of:: COPD and CHF Currently on:: Neither Prehospital Care:: Furosemide Modifying Factors Worsens:: Exertion Improves:: Nothing Associated Signs and Symptoms Associated Signs and Symptoms: Wheeze, Cough and Leg Swelling If Chest Pain Quality: denies Sharp, Stabbing, Squeezing, Pressure like, Heavy, Crushing, Burning, Aching, Pleuritic and Other Location: denies Right Upper Chest, Right Lower Chest, Left Upper Chest, Left Lower Chest, Substernal and Chest Wall If Cough Cough: Productive and Green PMH PMH Past Medical History: Yes Past Medical History: CHF, Diabetes and Hypertension Past Surgical History: Yes Surgical History: Ortho Surgery Family History History of Family Medical Conditions: Yes Family Medical History: Diabetes Mellitus, Cancer, [place] and Heart Failure Social History Does patient currently use any type of tobacco product: No Have you used tobacco products in the last 12 months: No Type of Tobacco Use: None Does any household member use tobacco: No Alcohol Use: None Do you use any recreational Drugs:: No Lives Where: Home infectious screening In the last 2 months have you had wt loss of >10#?: NO Have you had fever, night sweats or hemotysis?: No Have you traveled outside the country in the last 6 months?: No Isolation: Standard ROS Review of Systems Constitutional: Chills and Fever Eyes: No Symptoms Reported ENTM: No Symptoms Reported Respiratoy: Productive Cough, Short of Breath and Wheezing Cardiovascular: Edema; negative No Symptoms Reported, See HPI, Chest Pain, Palpitations, Syncope, Cyanosis, Skin Mottling and Other Gastrointestinal/Abdominal: No Symptoms Reported; negative See HPI, Abdominal Pain, Constipation, Diarrhea, Nausea, Vomiting, Food Intolerance and Other Genitourinary: No Symptoms Reported and Frequency; negative See HPI, Discharge, Dysuria, Hematuria, Pain, Bleeding and Other Neurological: No Symptoms Reported; negative See HPI, Anxiety, Depressed, Emo tional Problems, Headache, Numbness, Paresthesia, Pre-existing Deficit, Seizure, Tingling, Tremors, Weakness, Dizziness, Problems Walking, Speech Problem and Other Musculoskeletal: No Symptoms Reported Integumentary: No Symptoms Reported; negative See HPI, Change in Color, Change in Hair/Nails, Dryness, Lesions, Lumps, Rash, Itching, Wound, Bruises, Juandice and Other Endocrine: No Symptoms Reported Psychiatric: No Symptoms Reported; negative See HPI, Anxiety, Depression, Hallucinations, Excessive crying, Suicidal and Other PE Vital Signs Vitals: Temperature 100 F Pulse Rate [Apical] 120 Pulse Rate 127 Respiratory Rate 49 Blood Pressure [Left Arm] 133/93 Blood Pressure 136/91 O2 Sat by Pulse Oximetry 93 General Limitations: No Limitations General Appearance: Alert, In No Apparent Distress, In Distress (moderate distress) and Obese Head Head Exam: Normal Inspection, Atraumatic and Normocephalic Eyes Eye exam: Normal Appearance, PERRL and EOMI ENT ENT Exam: Normal Exam, Normal Oropharynx, Normal External Ear Exam, Mucous Membranes Moist and TM's Normal Bilaterally Neck Neck Exam: Normal Inspection, Full ROM and Trachea Midline Chest Chest Inspection: Normal Inspection and Symmetric Chest Wall Rise; negative Tenderness, Rash, Abscess and Other Respiratory Respiratory Exam: Prolonged Expiratory Phase and Respiratory Distress Respiratory Exam: Bilateral: Wheezing, Bilateral: Rales and Bilateral: Decreased Breath Sounds Cardiovascular Cardiovascular Exam: Regular Rate, Normal Rhythm, Normal Heart Sounds and Systolic Murmur Abdominal Exam Abdominal Exam: Normal Inspection, Normal Bowel Sounds and Soft; negative Distention, Tenderness, Guarding, Rebound, Rigidity, Dimnished Bowel Sounds, Hyp eractive Bowel Sounds, Hypoactive Bowel Sounds, Organomegaly, Trauma, Incision, Ascites, Mass, Bruit, Pulsatile Mass, Hernia and Other Abdominal Tenderness: negative RUQ, RLQ, LUQ, LLQ, Epigastrium, Suprapubic, Diffuse, Mild, Moderate, Severe and Other Extremities Extremities Exam: Normal Inspection, Full ROM, Normal Capillary Refill and Edema Back Back Exam: Normal Inspection and Full ROM; negative Tenderness, (R) CVA Tendern ess, (L) CVA Tenderness, Muscle Spasm, Paraspinal Tenderness, Vertebral Tenderness, Rashes, (R) Sciatic Notch Tenderness, (L) Sciatic Notch Tendern, (R) Straight Leg Raise, (L) Straight Leg Raise and Other Neurologic Neurological Exam: Alert, Oriented X3, CN II-XII Intact, Normal Gait and Reflexes Normal Psychiatric Psychiatric Exam: Normal Affect and Normal Mood; negative Depressed, Agitated, Anxious, Flat Affect, Manic, Homicidal Ideation, Suicidal Ideation and Other Skin Skin Exam: Warm, Intact and Normal Color; negative Dry, Rash, Cyanosis, Diaphoresis, Erythema, Pallor, Mottled and Other ROR Labs Reviewed Laboratory Results Reviewed?: Yes (All labs and x-ray results reviewed and discussed with patient) Result Diagrams: 10/12/19 11:54 10/12/19 11:54 Laboratory: WBC 20.0 X10^3/uL (3.6-10.0) H 10/12/19 11:54 RBC 5.74 X10^6/uL (4.7-6.0) 10/12/19 11:54 Hgb 17.7 g/dL (13.5-18.0) 10/12/19 11:54 Hct 52.3 % (42.0-54.0) 10/12/19 11:54 MCV 91.1 fL (80.0-100.0) 10/12/19 11:54 MCH 30.9 pg (27.0-34.0) 10/12/19 11:54 MCHC 33.9 g/dL (33.0-35.0) 10/12/19 11:54 RDW 15.0 % (11.6-16.5) 10/12/19 11:54 Plt Count 377 X10^3/uL (150.0-450.0) 10/12/19 11:54 MPV 7.7 fL (7.4-11.0) 10/12/19 11:54 Neut % (Auto) 88.8 % (42.0-75.0) H 10/12/19 11:54 Lymph % (Auto) 5.4 % (21.0-51.0) L 10/12/19 11:54 [place] % (Auto) 5.1 % (0.0-13.0) 10/12/19 11:54 Eos % (Auto) 0.0 % (0.9-2.9) L 10/12/19 11:54 Baso % (Auto) 0.7 % (0.2-1.0) 10/12/19 11:54 Neut # (Auto) 17.7 x10^3/uL (2.2-4.8) H 10/12/19 11:54 Lymph # (Auto) 1.1 X10^3/uL (1.3-2.9) L 10/12/19 11:54 [place] # (Auto) 1.0 x10^3/uL (0.3-0.8) H 10/12/19 11:54 Eos # (Auto) 0.0 x10^3/uL (0.0-0.2) 10/12/19 11:54 Baso # (Auto) 0.1 X10^3/uL (0.0-0.1) 10/12/19 11:54 Absolute Nucleated RBC 0.1 /100WBC 10/12/19 11:54 PT 15.6 SECONDS (11.8-14.3) 10/12/19 11:54 INR Target Range - 10/12/19 11:54 INR 1.29 (0.8-1.3) 10/12/19 11:54 APTT 28.8 SECONDS (22.9-36.5) 10/12/19 11:54 PTT Comment - 10/12/19 11:54 D-Dimer 1330 ng/mL (0-400) H* 10/12/19 11:54 Sodium 136 mmol/L (136-145) 10/12/19 11:54 Corrected Sodium 139 mmol/L (136-145) 10/12/19 11:54 Potassium 4.5 mmol/L (3.5-5.1) 10/12/19 11:54 Chloride 98 mmol/L (98-107) 10/12/19 11:54 Carbon Dioxide 27.1 mmol/L (21-32) 10/12/19 11:54 BUN 19 mg/dL (7-18) H 10/12/19 11:54 Creatinine 1.38 mg/dL (0.70-1.30) H 10/12/19 11:54 Est GFR (MDRD) Af Amer > 60 (>60) 10/12/19 11:54 Est GFR (MDRD) Non-Af 57 (>60) L 10/12/19 11:54 Glucose 234 mg/dL (65-99) H 10/12/19 11:54 Lactic Acid 1.9 mmol/L (0.4-2.0) 10/12/19 12:56 Calcium 9.0 mg/dL (8.5-10.1) 10/12/19 11:54 Corrected Calcium 10.0 mg/dL (8.5-10.1) 10/12/19 11:54 Magnesium 1.2 mg/dL (1.7-2.9) L 10/12/19 11:54 Total Bilirubin 2.10 mg/dL (0.2-1.0) H 10/12/19 11:54 AST 23 Units/L (15-37) 10/12/19 11:54 ALT 37 Units/L (12-78) 10/12/19 11:54 Alkaline Phosphatase 94 Units/L (46-116) 10/12/19 11:54 Creatine Kinase 137 Units/L (39-308) 10/12/19 11:54 CK-MB (CK-2) 1.7 ng/mL (0-4.0) 10/12/19 11:54 CK/CKMB % Calc 1.2 % (<4) 10/12/19 11:54 Troponin I 0.02 ng/mL (0-1.5) 10/12/19 11:54 B-Natriuretic Peptide 3510 pg/mL (0-79) H* 10/12/19 11:54 Total Protein 7.8 g/dL (6.4-8.2) 10/12/19 11:54 Albumin 2.7 g/dL (3.4-5.0) L 10/12/19 11:54 Globulin 5.1 g/dL (2.5-4.5) H 10/12/19 11:54 Albumin/Globulin Ratio 0.5 Ratio (1.1-2.1) L 10/12/19 11:54 Influenza Type A (PCR) Negative (NEGATIVE) 10/12/19 12:05 Influenza Type B (PCR) Negative (NEGATIVE) 10/12/19 12:05 XRAY XRAY Interpreted by: Radiologist XRAY Findings: CXR: Cardiac enlargement; right lower lung infiltrate EKG Rate: 130 [place]: LAD Rhythm: NSR and ST ST: Nonsp Opioid Opioid Risk Tool Age (Luis Eduardo box if 16-45): No History of Preadolescent Sexual Abuse: No Total: 0 Total Score Risk Category: Low Risk Copyright: Kevin REECE predicting aberrant behaviors Diagnosis Discharge Problem: Pneumonia, Diabetes mellitus, Congestive heart failure (CHF), Chronic kidney disease (CKD)
[2019-10-12 12:13] LABS: BASOPHILS # (AUTO) 0.1 X10^3/uL (0.0-0.1); BASOPHILS % (AUTO) 0.7 % (0.2-1.0); HEMATOCRIT 52.3 % (42.0-54.0); HEMOGLOBIN 17.7 g/dL (13.5-18.0); LYMPHOCYTES # (AUTO) 1.1 X10^3/uL (1.3-2.9); LYMPHOCYTES % (AUTO) 5.4 % (21.0-51.0); MEAN CORPUSCULAR HEMOGLOBIN 30.9 pg (27.0-34.0); MEAN CORPUSCULAR HGB CONC 33.9 g/dL (33.0-35.0); MEAN CORPUSCULAR VOLUME 91.1 fL (80.0-100.0); MEAN PLATELET VOLUME 7.7 fL (7.4-11.0); MONOCYTES % (AUTO) 5.1 % (0.0-13.0); NEUTROPHILS # (AUTO) 17.7 x10^3/uL (2.2-4.8); NEUTROPHILS % (AUTO) 88.8 % (42.0-75.0); PLATELET COUNT 377 X10^3/uL (150.0-450.0); RED BLOOD COUNT 5.74 X10^6/uL (4.7-6.0)
[2019-10-12 12:25] LABS: BLOOD UREA NITROGEN 19 mg/dL (7-18); CARBON DIOXIDE 27.1 mmol/L (21-32); CHLORIDE 98 mmol/L (98-107); COR NA(FOR HYPERGLY) 139 mmol/L (136-145); CREATININE 1.38 mg/dL (0.70-1.30); SODIUM 136 mmol/L (136-145); TROPONIN I 0.02 ng/mL (0-1.5); eGFR NON BLACK RACES 57 (>60)
[2019-10-12 12:29] LABS: ALANINE AMINOTRANSFERASE 37 Units/L (12-78); ALBUMIN 2.7 g/dL (3.4-5.0); ALKALINE PHOSPHATASE 94 Units/L (46-116); ASPARTATE AMINO TRANSFERASE 23 Units/L (15-37); CKMB % 1.2 % (<4); CREATINE KINASE 137 Units/L (39-308); CREATINE KINASE MB 1.7 ng/mL (0-4.0); MAGNESIUM 1.2 mg/dL (1.7-2.9); TOTAL PROTEIN 7.8 g/dL (6.4-8.2)
--- NOTE | 2019-10-12 12:32 | RAD ---
HISTORYChest pain SOBSTUDYPortable AP [id number]/31/2019FINDINGSContinued cardiomegaly. Patchy infiltrate now noted at the right fritz g base. The left lung is grossly clear although the retrocardiac lower lobe is not well visualized. N o definite pneumothorax or pleural fluid.IMPRESSIONCardiac enlargement and right lower lung infiltrat e compatible with pneumonia.Electronically signed by: ALE ASHRAF (Oct 12, 2019 12:31:15)
[2019-10-12] MEDS ORDERED: NS 100 ML IV + SPIKE MINIBAG* 100 ML IV ONE (13:36)
[2019-10-12] MEDS ORDERED: ROCEPHIN VIAL 1 GRAM ONE (13:37)
[2019-10-12] MEDS: ROCEPHIN VIAL 1 GRAM 1 G in NS 100 ML IV + SPIKE MINIBAG* 100 ML IV SCH (13:39)
[2019-10-12] MEDS ORDERED: NS 1000 ML 1,000 ML IV SCH (15:00)
[2019-10-12] MEDS ORDERED: NS 1/2 1000 ML IV 1,000 ML IV SCH (15:00)
[2019-10-12] MEDS ORDERED: TYLENOL 325 MG TAB PO PRN (16:01)
[2019-10-12] MEDS ORDERED: NS 500 ML IV 500 ML IV ONE (16:08)
[2019-10-12] MEDS ORDERED: TYLENOL 325 MG TAB PO ONE (16:17)
[2019-10-12] MEDS ORDERED: LEVAQUIN PREMIX IV 750 MG 750 MG/150 ML BAG IV ONE (16:17)
[2019-10-12] MEDS ORDERED: LOVENOX INJ 100 MG SYR SC ONE (16:18)
[2019-10-12] MEDS: LOVENOX INJ 100 MG SYR SC SCH (16:23)
[2019-10-12] MEDS: LEVAQUIN PREMIX IV 750 MG 750 MG/150 ML BAG IV SCH (16:24)
[2019-10-12] MEDS: XOPENEX 1.25 MG/3 ML NEBULE NEB SCH (17:25)
[2019-10-12] MEDS: SNACK - Diabetic Appropriate PO SCH (20:45)
[2019-10-12] MEDS: COREG TAB 6.25 MG PO SCH (22:03)
[2019-10-12] MEDS: LEVEMIR SC SCH (22:04)
[2019-10-12] MEDS: ZOSYN VIAL 4.5 GRAMS 4.5 G in NS 100 ML IV + SPIKE MINIBAG* 100 ML IV SCH (22:05)
[2019-10-12] MEDS: LASIX PO SCH (22:05)
[2019-10-13] MEDS: XOPENEX 1.25 MG/3 ML NEBULE NEB SCH ×4 (00:55→17:20)
[2019-10-13 05:05] LABS: BASOPHILS # (AUTO) 0.1 X10^3/uL (0.0-0.1); BASOPHILS % (AUTO) 0.3 % (0.2-1.0); HEMATOCRIT 46.9 % (42.0-54.0); HEMOGLOBIN 15.7 g/dL (13.5-18.0); LYMPHOCYTES # (AUTO) 1.3 X10^3/uL (1.3-2.9); LYMPHOCYTES % (AUTO) 5.9 % (21.0-51.0); MEAN CORPUSCULAR HEMOGLOBIN 30.5 pg (27.0-34.0); MEAN CORPUSCULAR HGB CONC 33.4 g/dL (33.0-35.0); MEAN CORPUSCULAR VOLUME 91.4 fL (80.0-100.0); MEAN PLATELET VOLUME 8.1 fL (7.4-11.0); MONOCYTES % (AUTO) 4.7 % (0.0-13.0); NEUTROPHILS # (AUTO) 19.2 x10^3/uL (2.2-4.8); NEUTROPHILS % (AUTO) 89.1 % (42.0-75.0); PLATELET COUNT 297 X10^3/uL (150.0-450.0); RED BLOOD COUNT 5.13 X10^6/uL (4.7-6.0); WHITE BLOOD COUNT 21.5 X10^3/uL (3.6-10.0)
[2019-10-13 05:07] LABS: ALBUMIN 2.1 g/dL (3.4-5.0); CALCIUM 8.3 mg/dL (8.5-10.1); CARBON DIOXIDE 30.8 mmol/L (21-32); CHOL/HDL RATIO 1.9 (0.0-5.0); COR CA(FOR HYPOALB) 9.8 mg/dL (8.5-10.1); CREATININE 1.7 mg/dL (0.70-1.30); TOTAL PROTEIN 6.5 g/dL (6.4-8.2)
[2019-10-13 05:32] LABS: BAND NEUTROPHILS % 2 % (0-10); PLATELET MORPHOLOGY COMMENT NORMAL (NORMAL)
[2019-10-13] MEDS: ZOSYN VIAL 4.5 GRAMS 4.5 G in NS 100 ML IV + SPIKE MINIBAG* 100 ML IV SCH ×3 (05:56→21:00)
[2019-10-13] MEDS ORDERED: MICRO K EXTEN CAP 10 MEQ PO PRN (05:59)
[2019-10-13] MEDS ORDERED: POTASSIUM CHL 60 MEQ/NS 0.45% 500 ML IV PRN (05:59)
[2019-10-13] MEDS ORDERED: POTASSIUM CHL 40 MEQ/NS 0.45% 500 ML IV PRN (05:59)
[2019-10-13] MEDS ORDERED: K-RIDER 10 MEQ/NS 100 ML 10 MEQ/100 ML BAG IV PRN (05:59)
[2019-10-13] MEDS ORDERED: KLOR-CON PO PRN (05:59)
[2019-10-13] MEDS ORDERED: K-DUR TAB 20 MEQ PO PRN (05:59)
[2019-10-13] MEDS ORDERED: POTASSIUM CHLORIDE LIQ 20 MEQ UDC PO PRN (05:59)
--- NOTE | 2019-10-13 06:08 | RAD ---
HISTORYPNEUMONIA, CHFSTUDYCHEST, 1 [id number]/08/2020FINDINGSStable cardiomegaly. Shallow inspiration with vascular congestion. Patchy right base opacity again seen. Dense left retrocardiac opacity again noted. No visible pneumothorax.IMPRESSIONNo significant interval change. Patchy basilar opacity with left retrocardiac atelectasis or infiltrate and pulmonary vascular congestion.Electronically signed by: Michael Orantes (Oct 13, 2019 06:06:31)
[2019-10-13] MEDS: MAGNESIUM SULFATE 1 GRAM/100 mL PREMIX 1 GM/100 ML BAG IV PRN ×4 (06:26→13:30)
[2019-10-13] MEDS: LEVAQUIN PREMIX IV 750 MG 750 MG/150 ML BAG IV SCH (08:58)
[2019-10-13] MEDS: ALDACTONE TAB 25 MG PO SCH (08:59)
[2019-10-13] MEDS: COREG TAB 6.25 MG PO SCH (08:59)
[2019-10-13] MEDS: LEVEMIR SC SCH ×2 (08:59→21:00)
[2019-10-13] MEDS: LASIX PO SCH (08:59)
[2019-10-13] MEDS: LOVENOX INJ 100 MG SYR SC SCH (09:00)
[2019-10-13] MEDS ORDERED: LIPITOR TAB 40 MG PO SCH (09:00)
[2019-10-13] MEDS ORDERED: GLUCOTROL XL PO SCH (09:00)
[2019-10-13] MEDS: ROCEPHIN VIAL 1 GRAM 1 G in NS 100 ML IV + SPIKE MINIBAG* 100 ML IV SCH (09:01)
[2019-10-13] MEDS: TAMIFLU PO SCH ×2 (11:11→21:00)
[2019-10-13] MEDS: NS 1000 ML 1,000 ML IV SCH (11:11)
[2019-10-13] MEDS: ALBUMIN HUMAN 25%- 100 ML 100 ML IV SCH (11:12)
[2019-10-13] MEDS ORDERED: STERILE WATER IRRIGATION IR ONE ×2 (15:16→15:39)
[2019-10-13] MEDS: SNACK - Diabetic Appropriate PO SCH (20:55)
--- NOTE | 2019-10-13 22:07 | DR.H&P ---
H&P - History & Physical for Day of: H&P Date: 10/12/19 - Chief Complaint Chief Complaint: COUGH, SOB, DIZZINESS, FEVER - History of Present Illness History of Present Illness: IS A 53 YEAR OLD PATIENT OF OURS WHO PRESENTED TO THE ER WITH COMPLAINTS OF DIZZINESS, COUGH, SHORTNESS OF BREATH, AND FEVER. HE REPORTS A HISTORY OF CHF WITH AN EJECTION FRACTION OF 20%. HE WAS SCHEDULED TO GO TO [facility] ON 10/12 FOR A LIFE VEST. HE DENIES CHEST PAIN OR SWELLING MORE THAN NORMAL. ON EXAMINATION, HEA IS NOTED WITH SCATTERED WHEEZING. ON ARRIVAL TO THE ER, VITALS WERE 100.0-132-50-86%RA-136/91. LABS WERE OBTAINED. ABNORMAL LAB VALUES INCLUDE THE FOLLOWING: WBC 20, D-DIMER 1330, BUN 19, CREATININE 1.38, GLUCOSE 234, MAGNESIUM 1.2, TOTAL BILI 2.10, BNP 3510, ALBUMIN 2.7, GLOBULIN 5.1. INFLUENZA NEGATIVE. BLOOD AND SPUTUM CULTURES WERE OBTAINED. AN EKG WAS OBTAINED AND REVEALED: SINUS TACHYCARDIA WITH HR 130. CHEST XRAY REVEALED: CARDIAC ENLARGEMENT AND RIGHT LOWER LUNG INFILTRATE COMPATIBLE WITH PNEUMONIA. 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 HE WAS GIVEN ROCEPHIN 1G IV X 1 DOSE, LASIX 40MG IV X 1 DOSE, AND A RESPIRATORY TX IN THE ER. HE WAS ADMITTED TO THE HOSPITAL FOR FURTHER EVALUATION AND TREATMENT OF PNEUMONIA, CONGESTIVE HEART FAILURE, DIABETES MELLITIS, AND CHRONIC KIDNEY DISEASE. HE WAS STARTED ON THE POTASSIUM AND MAGENSIUM PROTOCOL, ZOSYN 4.5G IV TID, LEVAQUIN 750MG IV DAILY, ALBUMIN 25% IV DAILY, LASIX, LEVEMIR 8 UNITS SC BID, AND HOME MEDICATIONS WERE RESUMED. OTHERWISE, WE PLAN TO FOLLOW UP WITH AM LABS AND CHEST XRAY AND CONTINUE TO MONITOR. - Past Medical History Past Medical History: Hypertension, Diabetes, CHF - Past Surgical History Surgical History: Ortho Surgery - Family History Family Medical History: Diabetes Mellitus, Cancer, [place], Heart Failure - Social History Does patient currently use any type of tobacco product: Yes (Smokeless tobacco) Have you used tobacco products in the last 12 months: Yes Type of Tobacco Use: Smokeless Does any household member use tobacco: Yes Alcohol Use: None Drug Use: None Prescription drug monitoring program results: PDMP reviewed and no concerns identified - Medications Home Medications: No Known Drug Allergies Allergy (Verified 10/12/19 11:36) CONTINUE taking the following medications carvedilol 6.25 mg PO BID 10/12/19 [History] clonazepam 1 mg PO DAILY 10/12/19 [History] glipizide 2.5 mg PO DAILY 10/12/19 [History] sacubitril-valsartan [Entresto] 1 tab PO BID 10/12/19 [History] - Review of Systems Constitutional: Fever, Weakness Eyes: No Symptoms Reported ENT: No Symptoms Reported Respiratory: See HPI, Cough, Shortness of Breath, SOB with Excertion, Wheezing Cardiovascular: Light Headedness Gastrointestinal: No Symptoms Reported Genitourinary: No Symptoms Reported Musculoskeletal: No Symptoms Reported Skin: No Symptoms Reported Neurological: No Symptoms Reported - Physical Exam Vital Signs: Temperature 98.8 F Pulse Rate [Apical] 101 Pulse Rate 101 Respiratory Rate 30 Blood Pressure [Left Arm] 84/56 Blood Pressure 136/91 O2 Sat by Pulse Oximetry 91 Oriented: Normal Eyes: Normal Ear: Normal Nose: Normal Throat: Normal Respiratory: Wheezes Throughout Cardiovascular: Tachycardia : Normal Auscultation: Bowel Sounds: Normal Palpation: Normal Tenderness: Normal Skin: Normal Musculoskeletal: Normal Psychiatric: Normal Mood Description: Calm Affect: Normal Speech Pattern: Clear - Assessment/Plan (1) Pneumonia Qualifiers: Pneumonia type: due to unspecified organism Laterality: right Lung location: lower lobe of lung Qualified Code(s): J18.9 - Pneumonia, unspecified organism Status: Acute Plan: ADMIT, THE POTASSIUM AND MAGENSIUM PROTOCOL, ZOSYN 4.5G IV TID, LEVAQUIN 750MG IV DAILY, ALBUMIN 25% IV DAILY, LASIX, LEVEMIR 8 UNITS SC BID, AND HOME MEDICATIONS WERE RESUMED (2) Diabetes mellitus Qualifiers: Diabetes mellitus intermission coordinator insulin use: with senior living use Diabetes mellitus complication status: with kidney complications Status: Acute (3) Congestive heart failure (CHF) Qualifiers: Heart failure type: unspecified Heart failure chronicity: acute on chronic Qualified Code(s): I50.9 - Heart failure, unspecified Status: Acute (4) Chronic kidney disease (CKD) Qualifiers: Chronic kidney disease stage: stage 3 (moderate) Qualified Code(s): N18.3 - Chronic kidney disease, stage 3 (moderate) Status: Acute - Allergies Allergies/Adverse Reactions: Allergies Allergy/AdvReac Type Severity Reaction Status Date / Time No Known Drug Allergies Allergy Verified 10/12/19 11:36
[2019-10-14] MEDS: XOPENEX 1.25 MG/3 ML NEBULE NEB SCH ×4 (00:25→17:30)
[2019-10-14 05:00] LABS: BASOPHILS # (AUTO) 0.1 X10^3/uL (0.0-0.1); BASOPHILS % (AUTO) 0.4 % (0.2-1.0); EOSINOPHILS % (AUTO) 0.1 % (0.9-2.9); HEMATOCRIT 44.1 % (42.0-54.0); HEMOGLOBIN 14.8 g/dL (13.5-18.0); LYMPHOCYTES # (AUTO) 1.5 X10^3/uL (1.3-2.9); LYMPHOCYTES % (AUTO) 10.6 % (21.0-51.0); MEAN CORPUSCULAR HEMOGLOBIN 30.7 pg (27.0-34.0); MEAN CORPUSCULAR HGB CONC 33.5 g/dL (33.0-35.0); MEAN CORPUSCULAR VOLUME 91.6 fL (80.0-100.0); MEAN PLATELET VOLUME 8.2 fL (7.4-11.0); MONOCYTES # (AUTO) 0.9 x10^3/uL (0.3-0.8); MONOCYTES % (AUTO) 6.3 % (0.0-13.0); NEUTROPHILS # (AUTO) 11.8 x10^3/uL (2.2-4.8); NEUTROPHILS % (AUTO) 82.6 % (42.0-75.0); PLATELET COUNT 295 X10^3/uL (150.0-450.0); RED BLOOD COUNT 4.82 X10^6/uL (4.7-6.0); RED CELL DISTRIBUTION WIDTH 14.9 % (11.6-16.5); WHITE BLOOD COUNT 14.3 X10^3/uL (3.6-10.0)
[2019-10-14 05:19] LABS: ALBUMIN 2.3 g/dL (3.4-5.0); CALCIUM 8.8 mg/dL (8.5-10.1); CARBON DIOXIDE 27.6 mmol/L (21-32); COR CA(FOR HYPOALB) 10.2 mg/dL (8.5-10.1); CREATININE 1.68 mg/dL (0.70-1.30); MAGNESIUM 2.5 mg/dL (1.7-2.9)
[2019-10-14] MEDS: ZOSYN VIAL 4.5 GRAMS 4.5 G in NS 100 ML IV + SPIKE MINIBAG* 100 ML IV SCH ×3 (06:03→21:47)
--- NOTE | 2019-10-14 06:22 | RAD ---
HISTORYFollow-up pneumoniaSTUDYCHEST, 1 [id number]/09/2020FINDINGSThe heart is enlarged. No congestive heart failure is noted. The right lung and left upper lung bernal are clear with the exception of subsegmental atelectasis in the right lung base. Increased density is present in the retrocardiac area of the left lower lobe obscuring the medial left hemidiaphragm unchanged from the prior examination. No definite pleural effusions are identified. The bony thorax is unremarkable.IMPRESSIONMild cardiomegaly without congestive heart failurePersistent increased density retrocardiac area left lower lobeElectronically signed by: ROBSON RENAE (Oct 14, 2019 06:21:18)
[2019-10-14] MEDS: TAMIFLU PO SCH ×2 (08:15→20:39)
[2019-10-14] MEDS: LOVENOX INJ 100 MG SYR SC SCH (08:15)
[2019-10-14] MEDS: LEVEMIR SC SCH ×2 (08:17→20:38)
[2019-10-14] MEDS ORDERED: LASIX IVP ONE (09:05)
[2019-10-14] MEDS ORDERED: IMODIUM CAP 2 MG PO PRN (09:38)
[2019-10-14] MEDS: LANOXIN PO SCH (09:42)
[2019-10-14] MEDS: ALDACTONE TAB 25 MG PO SCH (09:47)
[2019-10-14] MEDS: LEVAQUIN PREMIX IV 750 MG 750 MG/150 ML BAG IV SCH (10:40)
[2019-10-14] MEDS: ALBUMIN HUMAN 25%- 100 ML 100 ML IV SCH (12:48)
[2019-10-14] MEDS ORDERED: LASIX ONE (12:52)
[2019-10-14] MEDS: DIFLUCAN 200 MG IV PREMIX* 200 MG/100 ML BAG IV SCH (13:22)
[2019-10-14] MEDS: NS 1000 ML 1,000 ML IV SCH (16:21)
[2019-10-14] MEDS: SNACK - Diabetic Appropriate PO SCH (20:39)
[2019-10-15 00:12] LABS: CRYPTOSPORIDIUM PARVUM ANTIGEN NEGATIVE (NEGATIVE); GIARDIA LAMBLIA ANTIGEN NEGATIVE (NEGATIVE)
[2019-10-15] MEDS: XOPENEX 1.25 MG/3 ML NEBULE NEB SCH ×5 (00:45→18:03)
[2019-10-15] MEDS: NS 1000 ML 1,000 ML IV SCH ×2 (05:23→19:45)
[2019-10-15] MEDS: ZOSYN VIAL 4.5 GRAMS 4.5 G in NS 100 ML IV + SPIKE MINIBAG* 100 ML IV SCH ×3 (05:23→22:16)
[2019-10-15 05:48] LABS: BASOPHILS # (AUTO) 0.1 X10^3/uL (0.0-0.1); BASOPHILS % (AUTO) 0.6 % (0.2-1.0); HEMATOCRIT 46.2 % (42.0-54.0); HEMOGLOBIN 15.5 g/dL (13.5-18.0); LYMPHOCYTES # (AUTO) 1.6 X10^3/uL (1.3-2.9); LYMPHOCYTES % (AUTO) 12.6 % (21.0-51.0); MEAN CORPUSCULAR HEMOGLOBIN 30.7 pg (27.0-34.0); MEAN CORPUSCULAR HGB CONC 33.6 g/dL (33.0-35.0); MEAN CORPUSCULAR VOLUME 91.3 fL (80.0-100.0); MEAN PLATELET VOLUME 8.6 fL (7.4-11.0); MONOCYTES % (AUTO) 7.8 % (0.0-13.0); NEUTROPHILS # (AUTO) 10.1 x10^3/uL (2.2-4.8); PLATELET COUNT 322 X10^3/uL (150.0-450.0); RED BLOOD COUNT 5.06 X10^6/uL (4.7-6.0); WHITE BLOOD COUNT 12.7 X10^3/uL (3.6-10.0)
[2019-10-15 05:59] LABS: ALANINE AMINOTRANSFERASE 217 Units/L (12-78); ALBUMIN 2.6 g/dL (3.4-5.0); ALKALINE PHOSPHATASE 96 Units/L (46-116); ASPARTATE AMINO TRANSFERASE 314 Units/L (15-37); BLOOD UREA NITROGEN 46 mg/dL (7-18); CALCIUM 8.8 mg/dL (8.5-10.1); CARBON DIOXIDE 23.9 mmol/L (21-32); CHLORIDE 99 mmol/L (98-107); COR CA(FOR HYPOALB) 9.9 mg/dL (8.5-10.1); COR NA(FOR HYPERGLY) 135 mmol/L (136-145); CREATININE 1.56 mg/dL (0.70-1.30); DIGOXIN < 0.20 ng/mL (0.9-2); SODIUM 133 mmol/L (136-145); TOTAL PROTEIN 7.4 g/dL (6.4-8.2); eGFR NON BLACK RACES 49 (>60)
--- NOTE | 2019-10-15 07:50 | RAD ---
HISTORYPNEUMONIASTUDYPortable AP chestCOMPARISONYesterday October 14FINDINGSThere is persistent left lower lobe retrocardiac density. There is a more mild infiltrate at the right lung base. The heart is enlarged. The upper lobes are clear. The costophrenic angles are excluded from view.IMPRESSION1. Persistent left lower lobe retrocardiac density suggestive of pneumonia2. Right basilar subsegmental atelectasis or pneumonitis3. Unchanged cardiomegalyElectronically signed by: SOLO STUART (Oct 15, 2019 07:49:17)
[2019-10-15] MEDS: ALDACTONE TAB 25 MG PO SCH (08:51)
[2019-10-15] MEDS: LANOXIN PO SCH (08:51)
[2019-10-15] MEDS: TAMIFLU PO SCH ×2 (08:51→22:12)
[2019-10-15] MEDS: ALBUMIN HUMAN 25%- 100 ML 100 ML IV SCH (08:52)
[2019-10-15] MEDS: LEVEMIR SC SCH ×2 (08:55→22:12)
[2019-10-15] MEDS: LOVENOX INJ 100 MG SYR SC SCH (08:55)
[2019-10-15] MEDS: LEVAQUIN PREMIX IV 750 MG 750 MG/150 ML BAG IV SCH (09:48)
[2019-10-15] MEDS: ASPIRIN EC 81 MG PO SCH (10:37)
[2019-10-15] MEDS: ENTRESTO 24/26 MG TAB PO SCH ×2 (10:37→22:12)
[2019-10-15] MEDS: FLONASE NASAL SPRAY ENOSTRIL SCH (10:37)
[2019-10-15] MEDS: KLONOPIN TAB 1 MG PO SCH (10:38)
[2019-10-15] MEDS: DIFLUCAN 200 MG IV PREMIX* 200 MG/100 ML BAG IV SCH (12:04)
--- NOTE | 2019-10-15 13:56 | PCM.PROG ---
Progress Note - Progress Note for Day of Date of Exam: 10/14/19 - Subjective Subjective: IS BEING TREATED FOR PNEUMONIA, DIABETES, CONGESTIVE HEART FAILURE, AND CHRONIC KIDNEY DISEASE. STAFF REPORTS THAT HE HAS BEEN HYPOTENSIVE THROUGHOUT THE NIGHT. TODAY, HE IS ALERT AND ORIENTED, SITTING ON THE SIDE OF THE BED ON MORNING ROUNDS. HE CONTINUES TO UTILIZE THE BIPAP TH ROUGHOUT THE NIGHT. HE CONTINUES WITH COMPLAINTS OF COUGH, SHORTNESS OF BREATH, AND SWELLING. HE CONTINUES TO BE HYPOTENSIVE THIS MORNING. ON EXAMINATION, HEART IS REGULAR IN RATE AND RHYTHM. BILATERAL LUNGS ARE NOTED WITH SCATTERED WHEEZING AND RHONCHI THROUGHOUT. ABDOMEN IS ROUND, SOFT, AND NON-TENDER WITH NORMAL BOWEL SOUNDS NOTED IN ALL QUADRANTS. LOWER EXTREMITIES ARE NOTED WITH 1+ PITTING ED CALIN. HIS VITALS THIS MORNING ARE: 98.2-94-23-95%NC-91/62. LABS WERE OBTAINED. ABNORMAL LAB VALUES INCLUDE THE FOLLOWING: WBC 14.3, SODIUM 134, BUN 42, CREATININE 1.68, GLUCOSE 138, TOTAL BILI 1.60, ALBUMIN 2.3, GLOBULIN 4.7. BLOOD AND SPUTUM CULTURES PENDING. LAB REPORTS THAT BLOOD CULTURES ARE POSITIVE. A CHEST XRAY WAS OBTAINED TODAY AND REVEALED: Mild cardiomegaly without congestive heart failure. Persistent increased density retrocardiac area left lower lobe. HE IS CURRENTLY RECEIVING ALBUMIN 25% IV DAILY, LEVAQUIN 750MG IV DAILY, ZOSYN 4.5G IV DAILY, THE POTASSIUM AND MAGNESIUM PROTOCOL, LEVEMIR 8 UNITS SC BID. TODAY, WE WILL START DIGOXIN 0.125MG PO DAILY, NORMAL SALINE AT 75 ML/HR, AND ADMINISTER LASIX 20MG IV X 1 DOSE. OTHERWISE, WE WILL FOLLOW UP WITH AM LABS AND CONTINUE TO MONITOR. - Past Medical Family Social History Past Med/Fam/Surg Hx: No changes since H&P Allergies: Allergies No Known Drug Allergies Allergy (Verified 10/12/19 11:36) - Review of Systems ROS: No change since H&P - Vital Signs and I&O's Vital Signs: Temperature 98.1 F Pulse Rate [Apical] 100 Pulse Rate 92 Respiratory Rate 20 Blood Pressure [Left Arm] 111/65 Blood Pressure 138/92 O2 Sat by Pulse Oximetry 95 Intake and Output: Intake & Output 10/13/19 10/14/19 10/15/19 10/16/19 11:59 11:59 11:59 11:59 Intake Total 900 / 900 2632 / 2632 3891 / 3891 Output Total 500 / 500 750 / 750 600 / 600 Balance 400 / 400 1882 / 1882 3291 / 3291 - Physical Exam Oriented: Normal Eyes: Normal Ear: Normal Nose: Normal Throat: Normal Respiratory: Generalized, Diminished, Wheezes, Rhonchi Cardiovascular: Normal : Normal Auscultation: Bowel Sounds: Normal Palpation: Normal Tenderness: Normal Skin: Normal Musculoskeletal: Normal Psychiatric: Normal Mood Description: Calm Affect: Normal Speech Pattern: Clear, Appropriate - Laboratory and Diagnostics Result Diagrams: 10/15/19 04:34 10/15/19 04:34 Labs: 10/12/19 12:56 Blood Blood Culture - Final Streptococcus Pneumoniae#2 10/12/19 12:48 Blood Blood Culture - Final Streptococcus Pneumoniae#2 10/14/19 23:10 Stool - Final 10/12/19 13:15 Sputum - Expectorated Sputum Sputum Culture - Final 10/12/19 13:15 Sputum - Expectorated Sputum - Final Laboratory WBC 12.7 X10^3/uL (3.6-10.0) H 10/15/19 04:34 RBC 5.06 X10^6/uL (4.7-6.0) 10/15/19 04:34 Hgb 15.5 g/dL (13.5-18.0) 10/15/19 04:34 Hct 46.2 % (42.0-54.0) 10/15/19 04:34 MCV 91.3 fL (80.0-100.0) 10/15/19 04:34 MCH 30.7 pg (27.0-34.0) 10/15/19 04:34 MCHC 33.6 g/dL (33.0-35.0) 10/15/19 04:34 RDW 15.0 % (11.6-16.5) 10/15/19 04:34 Plt Count 322 X10^3/uL (150.0-450.0) 10/15/19 04:34 Plt Count Comment Adequate (ADEQUATE) 10/13/19 04:17 MPV 8.6 fL (7.4-11.0) 10/15/19 04:34 Neut % (Auto) 79.0 % (42.0-75.0) H 10/15/19 04:34 Lymph % (Auto) 12.6 % (21.0-51.0) L 10/15/19 04:34 [place] % (Auto) 7.8 % (0.0-13.0) 10/15/19 04:34 Eos % (Auto) 0.0 % (0.9-2.9) L 10/15/19 04:34 Baso % (Auto) 0.6 % (0.2-1.0) 10/15/19 04:34 Neut # (Auto) 10.1 x10^3/uL (2.2-4.8) H 10/15/19 04:34 Lymph # (Auto) 1.6 X10^3/uL (1.3-2.9) 10/15/19 04:34 [place] # (Auto) 1.0 x10^3/uL (0.3-0.8) H 10/15/19 04:34 Eos # (Auto) 0.0 x10^3/uL (0.0-0.2) 10/15/19 04:34 Baso # (Auto) 0.1 X10^3/uL (0.0-0.1) 10/15/19 04:34 Absolute Nucleated RBC 0.1 /100WBC 10/15/19 04:34 Total Counted 100 10/13/19 04:17 Neutrophils % (Manual) 90 % (39-76) H 10/13/19 04:17 Band Neutrophils % 2 % (0-10) 10/13/19 04:17 Lymphocytes % (Manual) 7 % (13-43) L 10/13/19 04:17 Monocytes % (Manual) 3 % (4-9) L 10/13/19 04:17 Plt Morphology Comment Normal (NORMAL) 10/13/19 04:17 RBC Morphology Normal (NORMAL) 10/13/19 04:17 PT 15.6 SECONDS (11.8-14.3) 10/12/19 11:54 INR Target Range - 10/12/19 11:54 INR 1.29 (0.8-1.3) 10/12/19 11:54 APTT 28.8 SECONDS (22.9-36.5) 10/12/19 11:54 PTT Comment - 10/12/19 11:54 D-Dimer 1330 ng/mL (0-400) H* 10/12/19 11:54 Sodium 133 mmol/L (136-145) L 10/15/19 04:34 Corrected Sodium 135 mmol/L (136-145) L 10/15/19 04:34 Potassium 4.3 mmol/L (3.5-5.1) 10/15/19 04:34 Chloride 99 mmol/L (98-107) 10/15/19 04:34 Carbon Dioxide 23.9 mmol/L (21-32) 10/15/19 04:34 BUN 46 mg/dL (7-18) H 10/15/19 04:34 Creatinine 1.56 mg/dL (0.70-1.30) H 10/15/19 04:34 Est GFR (MDRD) Af Amer 60 (>60) 10/15/19 04:34 Est GFR (MDRD) Non-Af 49 (>60) L 10/15/19 04:34 Glucose 173 mg/dL (65-99) H 10/15/19 04:34 POC Glucose (mg/dL) 219 mg/dL (65-99) H 10/15/19 10:41 Lactic Acid 1.9 mmol/L (0.4-2.0) 10/12/19 12:56 Calcium 8.8 mg/dL (8.5-10.1) 10/15/19 04:34 Corrected Calcium 9.9 mg/dL (8.5-10.1) 10/15/19 04:34 Magnesium 2.5 mg/dL (1.7-2.9) 10/14/19 04:22 Total Bilirubin 1.60 mg/dL (0.2-1.0) H 10/15/19 04:34 AST 314 Units/L (15-37) H 10/15/19 04:34 ALT 217 Units/L (12-78) H 10/15/19 04:34 Alkaline Phosphatase 96 Units/L (46-116) 10/15/19 04:34 Creatine Kinase 137 Units/L (39-308) 10/12/19 11:54 CK-MB (CK-2) 1.7 ng/mL (0-4.0) 10/12/19 11:54 CK/CKMB % Calc 1.2 % (<4) 10/12/19 11:54 Troponin I 0.02 ng/mL (0-1.5) 10/12/19 11:54 B-Natriuretic Peptide 3510 pg/mL (0-79) H* 10/12/19 11:54 Total Protein 7.4 g/dL (6.4-8.2) 10/15/19 04:34 Albumin 2.6 g/dL (3.4-5.0) L 10/15/19 04:34 Globulin 4.8 g/dL (2.5-4.5) H 10/15/19 04:34 Albumin/Globulin Ratio 0.5 Ratio (1.1-2.1) L 10/15/19 04:34 Triglycerides 36 mg/dL (0-150) 10/13/19 04:17 Cholesterol 65 mg/dL (0-200) 10/13/19 04:17 LDL Cholesterol, Calc 24 mg/dL (0-100) 10/13/19 04:17 HDL Cholesterol 34 mg/dL (40-60) L 10/13/19 04:17 Cholesterol/HDL Ratio 1.9 (0.0-5.0) 10/13/19 04:17 Stool Description 20g,mucoid,unformed 10/14/19 23:10 Stool Description 20g,mucoid,unformed 10/14/19 23:10 Stl Occult Blood (IFOB) Negative (NEGATIVE) 10/14/19 23:10 Stool for White Cells Negative (NEGATIVE) 10/14/19 23:10 Stl C. diff Tox B Gene Negative (NEGATIVE) 10/14/19 23:10 Stl C. diff [id number] Negative (NEGATIVE) 10/14/19 23:10 Digoxin < 0.20 ng/mL (0.9-2) L 10/15/19 04:34 Cryptosporid parvum Ag Negative (NEGATIVE) 10/14/19 23:10 Giardia lamblia Ag Negative (NEGATIVE) 10/14/19 23:10 Influenza Type A (PCR) Negative (NEGATIVE) 10/12/19 12:05 Influenza Type B (PCR) Negative (NEGATIVE) 10/12/19 12:05 - Plan (1) Pneumonia Status: Acute Qualifiers: Pneumonia type: due to unspecified organism Laterality: right Lung location: lower lobe of lung Qualified Code(s): J18.9 - Pneumonia, unspecified organism Plan: IV LEVAQUIN, IV ZOSYN, RESPIRATORY TREATMENTS, SUPPLEMENTAL OXYGEN, CONTINUE TO MONITOR (2) Diabetes mellitus Status: Acute Qualifiers: Diabetes mellitus custodial insulin 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: 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 Diabetes mellitus complication status: with kidney complications Diabetes mellitus complication detail: with chronic kidney disease Chronic kidney disease stage: unspecified stage Plan: NORMAL SALINE AT 75 ML/HR, LEVEMIR 8 UNITS SC BID, CONTINUE TO MONITOR (3) Congestive heart failure (CHF) Status: Acute Qualifiers: Heart failure type: unspecified Heart failure chronicity: acute on chronic Qualified Code(s): I50.9 - Heart failure, unspecified Plan: LASIX 20MG IV X 1 DOSE, CONTINUE TO MONITOR (4) Chronic kidney disease (CKD) Status: Acute Qualifiers: Chronic kidney disease stage: stage 3 (moderate) Qualified Code(s): N18.3 - Chronic kidney disease, stage 3 (moderate)
[2019-10-15] MEDS ORDERED: RESTORIL CAP 15 MG PO PRN (20:46)
--- NOTE | 2019-10-15 21:49 | PCM.PROG ---
Progress Note - Progress Note for Day of Date of Exam: 10/15/19 - Subjective Subjective: IS BEING TREATED FOR PNEUMONIA, DIABETES, CONGESTIVE HEART FAILURE, AND CHRONIC KIDNEY DISEASE. TODAY, HE IS ALERT AND ORIENTED, SITTING ON THE SIDE OF THE BED ON MORNING ROUNDS. HE CONTINUED TO UTILIZE THE BIPAP THROUGHOUT THE NIGHT. HE CONTINUES WITH COMPLAINTS OF COUGH, SHORTNESS OF BREATH, AND SWELLING TODAY. ON EXAMINATION, HEART IS REGULAR IN RATE AND RHYTHM. BILATERAL LUNGS ARE NOTED WITH SCATTERED WHEEZING AND RHONCHI THROUGHOUT. ABDOMEN IS ROUND, SOFT, AND NON-TENDER WITH NORMAL BOWEL SOUNDS NOTED IN ALL QUADRANTS. LOWER EXTREMITIES CONTINUE WITH 1+ PITTING EDEMA. HIS VITALS THIS MORNING ARE: 97.5-97-24-96%-25/80. LABS WERE OBTAINED. ABNORMAL LAB VALUES INCLUDE THE FOLLOWING: WBC 12.7, SODIUM 133, BUN 46, CREATININE 1.56, GLUCOSE 173, TOTAL BILI 1.60, AST 314, ALT 217, ALBUMIN 2.6. BLOOD CULTURES ARE POSITIVE FOR STREPTOCOCCUS PNEUMONIAE. A CHEST XRAY WAS OBTAINED TODAY AND REVEALED: 1. Persistent left lower lobe retrocardiac density suggestive of pneumonia. 2. Right basilar subsegmental atelectasis or pneumonitis. 3. Unchanged cardiomegaly. HE IS CURRENTLY RECEIVING NORMAL SALINE AT 75ML/HR, ALBUMIN 25% IV DAILY, LEVAQUIN 750MG IV DAILY, ZOSYN 4.5G IV DAILY, DIGOXIN, THE POTASSIUM AND MAGNESIUM PROTOCOL, LEVEMIR 8 UNITS SC BID. TODAY, WE WILL START DIGOXIN 0.125MG PO DAILY, NORMAL SALINE AT 75 ML/HR. WE WILL RESUME HIS HOME MEDICATIONS TODAY. OTHERWISE, WE WILL FOLLOW UP WITH AM LABS AND CONTINUE TO MONITOR. - Past Medical Family Social History Past Med/Fam/Surg Hx: No changes since H&P Allergies: Allergies No Known Drug Allergies Allergy (Verified 10/12/19 11:36) - Review of Systems ROS: No change since H&P - Vital Signs and I&O's Vital Signs: Temperature 97.3 F Pulse Rate [Apical] 100 Pulse Rate 101 Respiratory Rate 23 Blood Pressure [Left Arm] 111/65 Blood Pressure 141/99 O2 Sat by Pulse Oximetry 95 Intake and Output: Intake & Output 10/13/19 10/14/19 10/15/19 10/16/19 11:59 11:59 11:59 11:59 Intake Total 900 / 900 2632 / 2632 3891 / 3891 1359 / 1359 Output Total 500 / 500 750 / 750 600 / 600 925 / 925 Balance 400 / 400 1882 / 1882 3291 / 3291 434 / 434 - Physical Exam Oriented: Normal Eyes: Normal Ear: Normal Nose: Normal Throat: Normal Respiratory: Generalized, Diminished, Wheezes, Rhonchi Cardiovascular: Normal : Normal Auscultation: Bowel Sounds: Normal Palpation: Normal Tenderness: Normal Skin: Normal Musculoskeletal: Normal Psychiatric: Normal Mood Description: Calm Affect: Normal Speech Pattern: Clear, Appropriate - Laboratory and Diagnostics Result Diagrams: 10/15/19 04:34 10/15/19 04:34 Labs: 10/12/19 12:56 Blood Blood Culture - Final Streptococcus Pneumoniae#2 10/12/19 12:48 Blood Blood Culture - Final Streptococcus Pneumoniae#2 10/14/19 23:10 Stool - Final 10/12/19 13:15 Sputum - Expectorated Sputum Sputum Culture - Final 10/12/19 13:15 Sputum - Expectorated Sputum - Final Laboratory WBC 12.7 X10^3/uL (3.6-10.0) H 10/15/19 04:34 RBC 5.06 X10^6/uL (4.7-6.0) 10/15/19 04:34 Hgb 15.5 g/dL (13.5-18.0) 10/15/19 04:34 Hct 46.2 % (42.0-54.0) 10/15/19 04:34 MCV 91.3 fL (80.0-100.0) 10/15/19 04:34 MCH 30.7 pg (27.0-34.0) 10/15/19 04:34 MCHC 33.6 g/dL (33.0-35.0) 10/15/19 04:34 RDW 15.0 % (11.6-16.5) 10/15/19 04:34 Plt Count 322 X10^3/uL (150.0-450.0) 10/15/19 04:34 Plt Count Comment Adequate (ADEQUATE) 10/13/19 04:17 MPV 8.6 fL (7.4-11.0) 10/15/19 04:34 Neut % (Auto) 79.0 % (42.0-75.0) H 10/15/19 04:34 Lymph % (Auto) 12.6 % (21.0-51.0) L 10/15/19 04:34 [place] % (Auto) 7.8 % (0.0-13.0) 10/15/19 04:34 Eos % (Auto) 0.0 % (0.9-2.9) L 10/15/19 04:34 Baso % (Auto) 0.6 % (0.2-1.0) 10/15/19 04:34 Neut # (Auto) 10.1 x10^3/uL (2.2-4.8) H 10/15/19 04:34 Lymph # (Auto) 1.6 X10^3/uL (1.3-2.9) 10/15/19 04:34 [place] # (Auto) 1.0 x10^3/uL (0.3-0.8) H 10/15/19 04:34 Eos # (Auto) 0.0 x10^3/uL (0.0-0.2) 10/15/19 04:34 Baso # (Auto) 0.1 X10^3/uL (0.0-0.1) 10/15/19 04:34 Absolute Nucleated RBC 0.1 /100WBC 10/15/19 04:34 Total Counted 100 10/13/19 04:17 Neutrophils % (Manual) 90 % (39-76) H 10/13/19 04:17 Band Neutrophils % 2 % (0-10) 10/13/19 04:17 Lymphocytes % (Manual) 7 % (13-43) L 10/13/19 04:17 Monocytes % (Manual) 3 % (4-9) L 10/13/19 04:17 Plt Morphology Comment Normal (NORMAL) 10/13/19 04:17 RBC Morphology Normal (NORMAL) 10/13/19 04:17 PT 15.6 SECONDS (11.8-14.3) 10/12/19 11:54 INR Target Range - 10/12/19 11:54 INR 1.29 (0.8-1.3) 10/12/19 11:54 APTT 28.8 SECONDS (22.9-36.5) 10/12/19 11:54 PTT Comment - 10/12/19 11:54 D-Dimer 1330 ng/mL (0-400) H* 10/12/19 11:54 Sodium 133 mmol/L (136-145) L 10/15/19 04:34 Corrected Sodium 135 mmol/L (136-145) L 10/15/19 04:34 Potassium 4.3 mmol/L (3.5-5.1) 10/15/19 04:34 Chloride 99 mmol/L (98-107) 10/15/19 04:34 Carbon Dioxide 23.9 mmol/L (21-32) 10/15/19 04:34 BUN 46 mg/dL (7-18) H 10/15/19 04:34 Creatinine 1.56 mg/dL (0.70-1.30) H 10/15/19 04:34 Est GFR (MDRD) Af Amer 60 (>60) 10/15/19 04:34 Est GFR (MDRD) Non-Af 49 (>60) L 10/15/19 04:34 Glucose 173 mg/dL (65-99) H 10/15/19 04:34 POC Glucose (mg/dL) 242 mg/dL (65-99) H 10/15/19 21:23 Lactic Acid 1.9 mmol/L (0.4-2.0) 10/12/19 12:56 Calcium 8.8 mg/dL (8.5-10.1) 10/15/19 04:34 Corrected Calcium 9.9 mg/dL (8.5-10.1) 10/15/19 04:34 Magnesium 2.5 mg/dL (1.7-2.9) 10/14/19 04:22 Total Bilirubin 1.60 mg/dL (0.2-1.0) H 10/15/19 04:34 AST 314 Units/L (15-37) H 10/15/19 04:34 ALT 217 Units/L (12-78) H 10/15/19 04:34 Alkaline Phosphatase 96 Units/L (46-116) 10/15/19 04:34 Creatine Kinase 137 Units/L (39-308) 10/12/19 11:54 CK-MB (CK-2) 1.7 ng/mL (0-4.0) 10/12/19 11:54 CK/CKMB % Calc 1.2 % (<4) 10/12/19 11:54 Troponin I 0.02 ng/mL (0-1.5) 10/12/19 11:54 B-Natriuretic Peptide 3510 pg/mL (0-79) H* 10/12/19 11:54 Total Protein 7.4 g/dL (6.4-8.2) 10/15/19 04:34 Albumin 2.6 g/dL (3.4-5.0) L 10/15/19 04:34 Globulin 4.8 g/dL (2.5-4.5) H 10/15/19 04:34 Albumin/Globulin Ratio 0.5 Ratio (1.1-2.1) L 10/15/19 04:34 Triglycerides 36 mg/dL (0-150) 10/13/19 04:17 Cholesterol 65 mg/dL (0-200) 10/13/19 04:17 LDL Cholesterol, Calc 24 mg/dL (0-100) 10/13/19 04:17 HDL Cholesterol 34 mg/dL (40-60) L 10/13/19 04:17 Cholesterol/HDL Ratio 1.9 (0.0-5.0) 10/13/19 04:17 Stool Description 20g,mucoid,unformed 10/14/19 23:10 Stool Description 20g,mucoid,unformed 10/14/19 23:10 Stl Occult Blood (IFOB) Negative (NEGATIVE) 10/14/19 23:10 Stool for White Cells Negative (NEGATIVE) 10/14/19 23:10 Stl C. diff Tox B Gene Negative (NEGATIVE) 10/14/19 23:10 Stl C. diff [id number] Negative (NEGATIVE) 10/14/19 23:10 Digoxin < 0.20 ng/mL (0.9-2) L 10/15/19 04:34 Cryptosporid parvum Ag Negative (NEGATIVE) 10/14/19 23:10 Giardia lamblia Ag Negative (NEGATIVE) 10/14/19 23:10 Influenza Type A (PCR) Negative (NEGATIVE) 10/12/19 12:05 Influenza Type B (PCR) Negative (NEGATIVE) 10/12/19 12:05 - Plan (1) Pneumonia Status: Acute Qualifiers: Pneumonia type: due to unspecified organism Laterality: right Lung location: lower lobe of lung Qualified Code(s): J18.9 - Pneumonia, unspecified organism Plan: IV LEVAQUIN, IV ZOSYN, RESPIRATORY TREATMENTS, SUPPLEMENTAL OXYGEN, CONTINUE TO MONITOR (2) Diabetes mellitus Status: Acute Qualifiers: Diabetes mellitus alf insulin use: with alf use Diabetes mellitus complication status: with kidney complications Diabetes mellitus complication detail: with chronic kidney disease Chronic kidney disease stage: unspecified stage Plan: NORMAL SALINE AT 75 ML/HR, LEVEMIR 8 UNITS SC BID, CONTINUE TO MONITOR (3) Congestive heart failure (CHF) Status: Acute Qualifiers: Heart failure type: unspecified Heart failure chronicity: acute on chronic Qualified Code(s): I50.9 - Heart failure, unspecified Plan: LASIX 20MG IV X 1 DOSE, CONTINUE TO MONITOR (4) Chronic kidney disease (CKD) Status: Acute Qualifiers: Chronic kidney disease stage: stage 3 (moderate) Qualified Code(s): N18.3 - Chronic kidney disease, stage 3 (moderate)
[2019-10-15] MEDS: SNACK - Diabetic Appropriate PO SCH (22:10)
[2019-10-15] MEDS: ROBITUSSIN DM PO PRN (22:14)
[2019-10-15 23:30] LABS: BILIRUBIN,URINE NEGATIVE (NEGATIVE); BLOOD/HEMOGLOBIN,URINE 3+ (NEGATIVE); GLUCOSE, URINE 1+ (NEGATIVE); KETONES,URINE NEGATIVE (NEGATIVE); LEUKOCYTE ESTERASE ,URINE NEGATIVE (NEGATIVE); NITRITES,URINE NEGATIVE (NEGATIVE); PROTEIN,URINE 3+ (NEGATIVE); UROBILINOGEN,URINE NORMAL (NORMAL)
[2019-10-15 23:36] LABS: AMORPHOUS SEDIMENT,UR 1+ /HPF (NEGATIVE); APPEARANCE,URINE SLIGHTLY HAZY (CLEAR); BACTERIA,URINE TRACE /HPF (NEGATIVE); COLOR,URINE YELLOW (YELLOW); SQUAMOUS EPITHELIAL CELL,UR RARE /HPF (NEGATIVE)
[2019-10-16] MEDS: XOPENEX 1.25 MG/3 ML NEBULE NEB SCH ×3 (00:52→13:00)
[2019-10-16] MEDS: ROBITUSSIN DM PO PRN (04:33)
[2019-10-16] MEDS: ZOSYN VIAL 4.5 GRAMS 4.5 G in NS 100 ML IV + SPIKE MINIBAG* 100 ML IV SCH (05:26)
[2019-10-16 05:35] LABS: BASOPHILS # (AUTO) 0.1 X10^3/uL (0.0-0.1); BASOPHILS % (AUTO) 1.2 % (0.2-1.0); EOSINOPHILS % (AUTO) 0.1 % (0.9-2.9); HEMATOCRIT 46.9 % (42.0-54.0); HEMOGLOBIN 15.7 g/dL (13.5-18.0); LYMPHOCYTES % (AUTO) 19.9 % (21.0-51.0); MEAN CORPUSCULAR HEMOGLOBIN 31.3 pg (27.0-34.0); MEAN CORPUSCULAR HGB CONC 33.5 g/dL (33.0-35.0); MEAN CORPUSCULAR VOLUME 93.4 fL (80.0-100.0); MEAN PLATELET VOLUME 8.7 fL (7.4-11.0); MONOCYTES % (AUTO) 10.2 % (0.0-13.0); NEUTROPHILS % (AUTO) 68.6 % (42.0-75.0); PLATELET COUNT 331 X10^3/uL (150.0-450.0); RED BLOOD COUNT 5.03 X10^6/uL (4.7-6.0); RED CELL DISTRIBUTION WIDTH 14.7 % (11.6-16.5); WHITE BLOOD COUNT 10.2 X10^3/uL (3.6-10.0)
[2019-10-16 05:45] LABS: ALANINE AMINOTRANSFERASE 224 Units/L (12-78); ALBUMIN 2.5 g/dL (3.4-5.0); ALKALINE PHOSPHATASE 113 Units/L (46-116); ASPARTATE AMINO TRANSFERASE 169 Units/L (15-37); BLOOD UREA NITROGEN 35 mg/dL (7-18); CALCIUM 8.8 mg/dL (8.5-10.1); CARBON DIOXIDE 26.1 mmol/L (21-32); CHLORIDE 102 mmol/L (98-107); COR NA(FOR HYPERGLY) 138 mmol/L (136-145); CREATININE 1.28 mg/dL (0.70-1.30); DIGOXIN < 0.20 ng/mL (0.9-2); SODIUM 136 mmol/L (136-145); eGFR NON BLACK RACES > 60 (>60)
--- NOTE | 2019-10-16 06:38 | RAD ---
HISTORYFollow-up pneumoniaSTUDYCHEST, 1 VIEWCOMPARISONFebruary 2019FINDINGSHeart is within normal limits in size. The ambrose are normal. The aorta is calcified. The right lung and left upper lung bernal are clear. There is improved aeration in the retrocardiac area of the left lower lobe although some density remains. This could be on the basis of atelectasis or infiltrate. Bony thorax is unremarkable. No pleural effusions are identified.IMPRESSIONImproving aeration in the retrocardiac area of the left lower lobe but with some residual density present possibly due to atelectasis or infiltrateElectronically signed by: ROBSON RENAE (Oct 16, 2019 06:37:06)
[2019-10-16] MEDS: ALBUMIN HUMAN 25%- 100 ML 100 ML IV SCH (08:29)
[2019-10-16] MEDS: LEVAQUIN PREMIX IV 750 MG 750 MG/150 ML BAG IV SCH (08:29)
[2019-10-16] MEDS: ENTRESTO 24/26 MG TAB PO SCH (08:29)
[2019-10-16] MEDS: ALDACTONE TAB 25 MG PO SCH (08:29)
[2019-10-16] MEDS: LOVENOX INJ 100 MG SYR SC SCH (08:30)
[2019-10-16] MEDS: LEVEMIR SC SCH (08:31)
[2019-10-16] MEDS: ASPIRIN EC 81 MG PO SCH (08:32)
[2019-10-16] MEDS: FLONASE NASAL SPRAY ENOSTRIL SCH (08:32)
[2019-10-16] MEDS: LANOXIN PO SCH (08:33)
[2019-10-16] MEDS: TAMIFLU PO SCH (09:49)
[2019-10-16] MEDS: KLONOPIN TAB 1 MG PO SCH (09:49)
[2019-10-16 14:20] VITALS: BP 146/99
== END 2019-10-16 14:25 | disposition home or self-care (01) | DRG 193 ==
LOC: ER 11:30 → ICU 14:28
PROVIDERS: ADMIT Family Medicine; ATTEND Internal Medicine
DX: N18.3 Chronic kidney disease, stage 3 (moderate); R06.02 Shortness of breath; I13.0 Hypertensive heart and chronic kidney disease with heart failure and stage 1 through stage 4 chronic kidney disease, or unspecified chronic kidney disease; R42 Dizziness and giddiness; A40.3 Sepsis due to Streptococcus pneumoniae; I50.9 Heart failure, unspecified; I95.89 Other hypotension; E11.65 Type 2 diabetes mellitus with hyperglycemia; R60.0 Localized edema; J18.8 Other pneumonia, unspecified organism
CPT/HCPCS: 36415; 71010; 71045; 80053; 80061; 80162; 81001; 82270; 82550; 82553; 83605; 83630; 83735; 83880; 84484; 85025; 85378; 85610; 85730; 87040; 87045; 87070; 87077; 87086; 87186; 87205; 87328; 87329; 87427; 87449; 87493; 87502; 87899; 93005; 94640; 94760; 96365; 96374; 96375; 99285; A4222; A7030; G9035; J0696; J1450; J1650; J1815; J1940; J1956; J2543; J3475; J3490; J7030; J7040; J7050; P9047